=== PATIENT | female | born 2000 | race Caucasian/White ===

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

== ENCOUNTER → 2021-03-04 14:10 | Outpatient (BNVA) | payer MEDICAID, SELFPAY | PROVIDERS: PCP Nurse Practitioner; Referring Provider Nurse Practitioner; Visit Provider Surgery | DX: D3A.020 Benign carcinoid tumor of the appendix (principal) | CPT/HCPCS: 99202 ==

== ENCOUNTER 2021-03-26 13:43 | Outpatient (REF) | payer MEDICAID, SELFPAY ==
--- NOTE | ~2021-03-26 | CT_ITS ---
EXAMINATION: CT ABDOMEN AND PELVIS WITH CONTRAST CLINICAL INFORMATION: Staging carcinoid. COMPARISON: Previous CT of the abdomen and pelvis January 2021. TECHNIQUE: Multidetector volumetric images were obtained from the superior aspect of the liver through the pubic symphysis following administration 85 mL of Omnipaque 350 intravenous contrast. Sagittal and coronal reformatted images were obtained on the technologist's workstation. Oral Contrast: Yes. This CT examination was performed using dose optimization techniques as appropriate, variously including the following: *Automated exposure control. *Adjustment of mA and/or kV according to patient size (this includes techniques or standardized protocols for targeted exams where dose is matched to indication/reason for exam; i.e. extremities or head). *Use of iterative reconstruction technique. DLP: 417 mGy-cm FINDINGS: LUNG BASES: The visualized lung bases are unremarkable. LIVER, GALLBLADDER, AND BILIARY TREE: The liver is normal in size, shape, and attenuation. No focal hepatic lesion or biliary ductal dilatation is present. The gallbladder is unremarkable with no evidence of radiopaque gallstones, gallbladder wall thickening, or obvious pericholecystic inflammatory changes. PANCREAS: Unremarkable. SPLEEN: Unremarkable. ADRENAL GLANDS: Unremarkable. KIDNEYS AND URETERS: The kidneys are normal in size, shape, and attenuation. No hydronephrosis, hydroureter, or calculi seen. No perinephric stranding. BLADDER: Unremarkable. GASTROINTESTINAL TRACT: The small and large bowel are unremarkable. The appendix is has been removed. There is a small amount of fluid seen in the right lower quadrant. ABDOMINAL WALL: No significant hernia is appreciated. LYMPH NODES: There are small, small bowel mesentery lymph nodes. No enlarged lymph nodes are seen. Largest lymph node is at the root of the small bowel mesentery and measures 7 mm in short axis axial image follow up is recommended. VASCULAR: Unremarkable. PELVIC VISCERA: Unremarkable. OSSEOUS STRUCTURES: Unremarkable. CT/CT abdomen pelvis w con IMPRESSION: The appendix has been removed. There is a small amount of fluid in the right lower quadrant. There are small, small bowel mesentery nodes. Attention on follow-up is recommended. No enlarged lymph nodes, mesenteric mass or liver lesion to suggest metastatic disease. Fleischner guidelines were followed.
[2021-03-26] MEDS: iohexoL 350 MG/ML 100 ML INFUS..BTL IV (15:05)
== END 2021-03-26 13:44 | disposition home or self-care (01) ==
LOC: HO.CT 13:43
PROVIDERS: Visit Provider Internal Medicine
DX: C18.1 Malignant neoplasm of appendix (principal)
CPT/HCPCS: 74177; Q9967

== ENCOUNTER 2021-04-04 09:32 | Inpatient (IN) | payer MEDICAID, SELFPAY ==
[2021-03-25 12:03] VITALS: BMI 27.1
--- NOTE | 2021-04-03 09:49 | P.CONAN_ITS ---
Documented by User: Lissette Nascimento NP 04/03/21 09:53 HPI - Anesthesia Eval Consult details Narrative: 21yo F for Hand Assisted Laparoscopic Colon Resection with Possible Conversion to Open s/p appendectomy at [facility] 01/2021. 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, 1.3 cm PMFSH Active Problems Active Problems: All Active Problems (Updated 03/25/21 @ 10:00 by Viviana Bunch RN) Carcinoid tumor of appendix (Acute) Past Medical History Medical History Hx of appendicitis Hx of malignant carcinoid tumor Family History Family History Maternal Uncle Cancer Other Diabetes Surgical History Surgical History History of bladder surgery Hx of appendectomy Social History Social History Household Members Other:: roommates Are you a primary rehab care assistant to a significant other at home: No Do you presently have visiting nurse or other home services: No Alcohol intake: current Alcohol intake frequency: does not drink Patient Tobacco Use Status: Never used Tobacco Substance Use Type: Marijuana Meds Allergies Allergy/AdvReac Type Severity Reaction Status Date / Time No Known Allergies Allergy Verified 04/04/21 06:24 [No Known Allergies*] Home Medications Medication Instructions Recorded Confirmed Last Taken Type No Known Home Meds 03/25/21 03/25/21 Unknown History Exam Exam Date and Time: April 03, 2021 0949 Height,Weight and Vital Signs: Height 5 ft 6 in Weight 76.204 kg Pertinent Lab Results Pertinent Lab Results: Laboratory Tests 02/22/21 02/22/21 15:57 15:57 WBC 6.7 Hgb 13.4 Hct 41.7 Plt Count 341 Sodium 140 Potassium 4.8 Chloride 106 Carbon Dioxide 24 BUN 10 Creatinine 0.82 Assessment and Plan Assessment Anesthesia Assessment: Chart Reviewed Documented by User: Marisela Dobbs MD 04/04/21 07:20 PMFSH Past Medical History Medical History Hx of appendicitis Hx of malignant carcinoid tumor Functional capacity: independent ambulation Patient : No Family History Family History Maternal Uncle Cancer Other Diabetes Surgical History Surgical History History of bladder surgery Hx of appendectomy History of Problems with Anesthesia: No Social History Social History Household Members Other:: roommates Are you a primary rehab care assistant to a significant other at home: No Do you presently have visiting nurse or other home services: No Alcohol intake: current Alcohol intake frequency: does not drink Patient Tobacco Use Status: Never used Tobacco Substance Use Type: Marijuana Meds Allergies Allergy/AdvReac Type Severity Reaction Status Date / Time No Known Allergies Allergy Verified 04/04/21 06:24 [No Known Allergies*] Home Medications Medication Instructions Recorded Confirmed Last Taken Type No Known Home Meds 03/25/21 03/25/21 Unknown History Exam Airway Mallampati Class: II TM Dist: >3cm Neck ROM: Full Heart: RRR Lungs: CTA Assessment and Plan Final Anesthetic Review History of Problems with Anesthesia: No NPO: Yes ASA Class: II Final Preanesthetic Review: No Changes in Pt Med Stat, Meds/Allgs Chart Reviewed, Consent Obtained/Reviewed and Anes Risks/Benef Reviewed Patient Risk: Low Procedure Risk: Low Anesthetic Plan Anesthetic Plan: GA Disposition: Standard PACU
[2021-04-04] VITALS (22 sets, daily range): BP systolic 100–139; BP diastolic 60–91; PULSE 60–89; RESP 12–26; TEMP 36.2–37.2; O2SAT 95–100
[2021-04-04 06:41] LABS: UPreg QC Valid YES; Urine Pregnancy NEGATIVE (NEGATIVE)
[2021-04-04 06:53] LABS: COVID-19 Test Negative (Negative)
[2021-04-04] MEDS: Lactated Ringers 1,000 ML 100 ML IVCONT (06:53)
--- NOTE | 2021-04-04 07:25 | MHC.SHP ---
Pre-Procedural Eval Section A Date of Service: 04/04/21 The patient is an INPATIENT: Yes Changes since office visit: No Cold of Flu in the past 2 weeks, No New Medical Problems, No Changes in Medication and No Patient answered all questions The History & Physical has been completed within 30 days and I have reviewed it.: Yes Section B Chief Complaint: Carcinoid tumor of appendix Allergies: Allergies Allergy/AdvReac Type Severity Reaction Status Date / Time No Known Allergies Allergy Verified 04/04/21 06:24 [No Known Allergies*] Plan I have reviewed the history and physical and performed a pertinent physical examination on my patient. No changes have occurred unless specified.
--- NOTE | 2021-04-04 07:31 | PC.NURSE ---
pt made aware of chance of burn wth nipple and nose rings. taped per pt request
--- NOTE | 2021-04-04 07:35 | PM.EVENT ---
Event Note Date of Service: 04/04/21 Event Note: pt has piercings on her nose and both nipples explained to her the risk of skin valdez from this with use of electrocautery advised her that it is best to remove these she says she did not want to as the piercings are relatively new she says she understands the risks of skin valdez multiple discussions made with her discussions witnessed by OR staff
--- NOTE | 2021-04-04 09:12 | P.OP_ITS ---
Operative Note Operative Note Date of Service: 04/04/21 Narrative: Preop diagnosis: appendiceal carcinoid, status post appendectomy Postop diagnosis: The same Procedure: hand assisted laparoscopic right colon resection Surgeon: Jan Douglas MD 1st diversional therapist's assistant: MICHAEL Flores The patient is a 21-year-old female who had undergone laparoscopic appendectomy for appendicitis in [place] last January,. The path report however had shown a carcinoid at the tip of the appendix which was T3. She was therefore referred to me by the Oncologist for right colon resection as recommended by ENETS Guidelines. she understood the technique of the procedure as well as the risks, benefits, and alternatives. She was brought to the operating room placed supine on the table under general anesthesia via endotracheal tube. A Motley catheter was inserted. The abdomen is prepped and draped in the usual sterile fashion. A surgical time-out was done. The patient received Cefotan 2 g IV preoperatively I made a short incision at the level of the like us using blade 15 and this carried down through the full-thickness of the skin and subcutaneous fat with electrocautery. The fascia was incised and the peritoneum was entered. I lengthen the fascial incision to optimize the skin incision The Christian wound retractor was positioned. the GelPort was then attached to this along with an insufflating port. We insufflated through a pressure of 15 mmHg. The 30 degree 10 mm scope was placed through this insufflating port and with laparoscopic visualization, I position 5/12 mm port in the epigastric area below the subcostal margin as well as on the left upper Quadrant through small stab incisions. I removed the insufflating port. I placed the laparoscoped through the epigastric port. I positioned my hand through the GelPort and placed the patient in a [id number] head-down position. I retracted bowel loops away from the right lower quadrant . I was able to visualize the cecum and the right colon easily. I mobilized the lateral attachments along the white line of Toldt using the LigaSure starting from the cecum all the way to the panic flexure. I divided hepatocolic ligaments with the LigaSure to mobilize the hepatic flexure down. I divided attached omentum as well to further mobilize the entire recur small transverse colon. I continued to dissect the right colon from the retroperitoneum using the LigaSure to divide filmy attachments until was able to see the duodenum. This was the medial limit of our dissection so we stop mobilizing the retroperitoneum at this point I continued to divide attachments at the terminal ileum with the LigaSure until there was also well mobilized. At this point, it appeared that we had adequate mobilization of the entire right colon for anastomosis. I therefore level the patient I removed the GelPort and pulled up the entire right colon starting from the distal ileum all the way to the proximal transverse colon. I chose my point of transection about 12 cm from the ileocecal valve on the terminal ileum and created a mesenteric window through this. This was divided at this point using ERNESTO 60 mm stapler. I chose my point of dissection in the proximal transverse colon as well and created a mesenteric window. I divided the proximal transverse colon with ERNESTO 60 mm stapler as well. I marked my planned line of resection of the mesentery to involve I had ligation of the ileocolic pedicle and include adequate lymph node basin I then used the LigaSure to divide this mesentery along this line on the peritoneum from both the proximal distal side until I was able to clearly identify the ileocolic pedicle. I dissected the ileocolic pedicle to define this well. I applied Rhea is and divided the ileocolic pedicle between the Rhea clamps. I doubly tied the proximal side with a Dexon 2-0 type The right colon was therefore sent as a specimen We had good hemostasis on the mesentery as well as the pedicle I then positioned the divided ends of the distal ileum as well as the transverse colon to create our anastomosis. Open that the apex of each staple line to enter the lumen. I positioned each arm of the ERNESTO 60 mm stapler through the lumen at the anti mesenteric border of each limb. I made sure that there was no bowel between the staple lines and this was fired. I completed the anastomosis using a TA 60 mm stapler I closed the mesenteric defect with a running Dexon 3-0 stitch. I induration force the crotch of the staple line with a running Dexon 3-0 seromuscular stitch I examined for a stasis. Once hemostasis was ensured I replaced all bowel loops back into the peritoneal cavity I positioned the omentum to cover the anastomosis I then really replaced the GelPort and examined the peritoneum in laparoscopicaly. There was no evidence of any bleeding or any bowel injury . The anastomosis appeared intact . There was no evidence of any leak or any bowel injury or any bleeding. I therefore desufflated and removed the port as well as the wound retractor. I left 1 of the ports in place to it examine the peritoneum laparoscopically for later I closed the fascia with a running Maxon 1 stitch. I irrigated the subcutaneous layer. after the fascia was closed, I examined the peritoneum again laparoscopically after some infiltration. There was no bleeding seen and the closure of the fascia appeared intact without any bowel caught within the stitches. All incisions were closed with Jose 4-0 subcuticular running sutures. All incisions were infiltrated with Marcaine 0.5% for postop analgesia. Steri-Strip s and dressings were applied. The procedure was completed The patient tolerated procedure well. There were no complication noted. Initial fine counts of sponges and instruments were correct. Estimated blood loss about 30 cc The patient was extubated without difficulty and transferred to the recovery room with stable vital signs. Colon Resection Tumor location: Right colon Extent of lymphovascular resection Right colon (cecum and ascending colon): Right colon along with the terminal ileum, cecum and ascending colon General Surg. - Synoptic Notes Colon Resection Tumor location: Right colon Extent of Lymphovascular Resection: Right colon (cecum and ascending colon): Right colon along with the terminal ileum, cecum and ascending colon
--- NOTE | 2021-04-04 09:31 | P.BOP_ITS ---
Brief Operative Note Date of Service: 04/04/21 Pre-op diagnosis: carcinoid tumor of appendix Post-op diagnosis: same Procedure: hand assisted laparoscopic right colon resection Surgeon: SEBASTIEN CUMMINGS MD Anesthesia: GETA Was an Offset Plate Maker used for this Procedure?: Yes Offset Plate Maker: Margaret Flores Estimated blood loss (mL): 20 Pathology: other (right colon) Condition: stable Disposition: PACU
[2021-04-04] MEDS: fentaNYL citrate/PF 100 MCG/2 ML VIAL 25 MCG IVPUSH ×4 (09:45→10:00)
[2021-04-04] MEDS: oxyCODONE HCl Immed Release 5 MG TABLET PO (10:43)
[2021-04-04] MEDS: HYDROmorphone HCl 1 MG/ML SYRINGE 0.5 MG IVPUSH ×4 (10:53→17:55)
[2021-04-04] MEDS: Lactated Ringers 1,000 ML 80 ML IVCONT ×2 (11:27→21:31)
--- NOTE | 2021-04-04 15:27 | PM.EVENT ---
Event Note Date of Service: 04/04/21 Event Note: Seen postop She underwent right colon resection earlier today Seems to have good pain control Good urine output Stable vital signs Dressings dry She is doing well postoperatively I have updated her mother by phone Continue pain management
[2021-04-04] MEDS: Morphine Sulfate 2 MG/ML CARTRIDGE IVPUSH (20:51)
[2021-04-05] VITALS (8 sets, daily range): BP systolic 109–129; BP diastolic 59–76; PULSE 69–86; RESP 17–18; TEMP 36.6–37.6; O2SAT 97–98; BMI 27.1
[2021-04-05] MEDS: HYDROmorphone HCl 1 MG/ML SYRINGE 0.5 MG IVPUSH (01:46)
[2021-04-05] MEDS: 0.9 % Sodium Chloride Flush 3 ML SYRINGE IVFLUSH (01:47)
[2021-04-05] MEDS: ondansetron HCL 4 MG/2 ML VIAL IVPUSH ×2 (02:07→23:34)
[2021-04-05 05:42] LABS: MANUAL DIFF FLAG NO
[2021-04-05 05:49] LABS: Basophils Percent Auto 0.2 % (0-2); Eosinophils Percent Auto 0.1 % (0-4); Hematocrit 34.7 % (37.0-47.0); Hemoglobin 11.4 g/dl (12.0-16.0); Imm Gran Abs Auto 0.05 X10*3/uL (0.00-0.03); Imm Gran Pct Auto 0.4 % (0.0-0.4); Lymphocytes Absolute Auto 1.9 X10*3/uL (1.2-4.9); Lymphocytes Percent Auto 14.4 % (20-40); Mean Corpuscular HGB Conc 32.9 g/dl (31.0-35.0); Mean Corpuscular Hemoglobin 27.9 pg (27.0-33.0); Mean Corpuscular Volume 84.8 fL (80.0-98.0); Mean Platelet Volume 11.4 fL (9.4-12.3); Monocytes Absolute Auto 1.1 X10*3/uL (0.1-1.2); Monocytes Percent Auto 8.3 % (2-11); Neutrophils Absolute Auto 10.1 x10*3/uL (2.0-8.3); Neutrophils Percent Auto 76.6 % (45-73); Platelet Count 281 X10*3/uL (160-400); Red Blood Count 4.09 X10*6/uL (4.20-5.50); Red Cell Distribution Width 13.6 % (11.0-16.0); White Blood Count 13.2 X10*3/uL (4.8-10.8)
[2021-04-05 06:07] LABS: Anion Gap 14 (12-20); Blood Urea Nitrogen 9 mg/dL (9-16); Carbon Dioxide 23 mmol/L (22-29); Chloride 105 mmol/L (96-108); Creatinine Clr Calc Pharmacy 123.1; Estimated Glomerular Filt Rate > 60; Glucose Random 96 mg/dL (60-115); Potassium 4.7 mmol/L (3.3-5.1); Sodium 137 mmol/L (135-145)
[2021-04-05] MEDS: oxyCODONE HCl Immed Release 5 MG TABLET 10 MG PO ×2 (07:33→22:48)
--- NOTE | 2021-04-05 08:16 | PM.PNGS ---
Subjective Subjective Date of Service: 04/05/21 <Margaret Flores PA-C - Last Filed: 04/05/21 08:20> 04/05/21 <Jan Douglas MD - Last Filed: 04/05/21 15:56> Interval history: Very sore this morning at incision site. Also c/o some nausea. Denies flatus. Has not been OOB. <Margaret Flores PA-C - Last Filed: 04/05/21 08:20> Physical Exam Vital Signs: Vital Signs: Last Vital Signs Temp 97.9 F 04/05/21 08:00 Pulse 69 04/05/21 08:00 Resp 18 04/05/21 08:00 BP 109/68 04/05/21 08:00 Pulse Ox 98 04/05/21 08:00 BMI result Body Mass Index 27.1 <BILL Yarbrough Last Filed: 04/05/21 08:20> Const: General: no acute distress and alert <Margaret Flores PA-C - Last Filed: 04/05/21 08:20> Orientation/consciousness: patient oriented x3 <Margaret Flores PA-C - Last Filed: 04/05/21 08:20> Resp: Effort & Inspection: normal respiratory effort <BILL Yarbrough Last Filed: 04/05/21 08:20> Cardio: Rate: regular rate <Margaret Flores PA-C - Last Filed: 04/05/21 08:20> GI: Inspection: No distended and Yes incision (dressings intact) <Margaret Flores PA-C - Last Filed: 04/05/21 08:20> Palpation (GI): Soft to palpation, Tenderness to palpation present (GI) (incisional), no guarding and not rigid <BILL Yarbrough Last Filed: 04/05/21 08:20> Percussion: Yes normal to percussion <BILL Yarbrough Last Filed: 04/05/21 08:20> : Other: anaya in place <BILL Yarbrough Last Filed: 04/05/21 08:20> Skin: General skin exam: no rashes or lesions noted <Margaret Flores PA-C - Last Filed: 04/05/21 08:20> Neuro: General: patient oriented x3 <Margaret Flores PA-C - Last Filed: 04/05/21 08:20> Extrem: General: Yes no clubbing, cyanosis or edema <Margaret Flores PA-C - Last Filed: 04/05/21 08:20> Objective Data Active Medications Diphenhydramine HCl (Diphenhydramine Hcl 50 Mg/Ml Vial) 25 mg IVPUSH Q6H PRN PRN Reason: Itching Hydromorphone HCl (Hydromorphone Hcl 1 Mg/Ml Syringe) 0.5 mg IVPUSH Q10M PRN; Protocol PRN Reason: Pain, Severe (Pain Scale 7-10) Last Admin: 04/05/21 01:46 Dose: 0.5 mg Documented by: JANE Acetaminophen (Ofirmev) 1,000 mg in 100 mls @ 400 mls/hr IV Q6H PRN PRN Reason: Pain, Severe (Pain Scale 7-10) Last Infusion: 04/04/21 20:25 Dose: 0 mls/hr Documented by: JOHN Lactated Ringer's (Lr) 1,000 mls @ 80 mls/hr IVCONT .[id number] [id number] Last Admin: 04/04/21 21:31 Dose: 80 mls/hr Documented by: JOHN Morphine Sulfate (Morphine Sulfate 2 Mg/Ml Cartridge) 2 mg IVPUSH Q3H PRN; Protocol PRN Reason: Pain, Severe (Pain Scale 7-10) Last Admin: 04/04/21 20:51 Dose: 2 mg Documented by: JOHN Ondansetron HCl (Ondansetron Hcl 4 Mg/2 Ml Vial) 4 mg IVPUSH Q8H PRN PRN Reason: Nausea and Vomiting Last Admin: 04/05/21 02:07 Dose: 4 mg Documented by: JANE Oxycodone HCl (Oxycodone Hcl Immed Release 5 Mg Tablet) 5 mg PO Q4H PRN PRN Reason: Pain, Moderate (Pain Scale 4-6 Oxycodone HCl (Oxycodone Hcl Immed Release 5 Mg Tablet) 10 mg PO Q4H PRN PRN Reason: Pain, Severe (Pain Scale 7-10) Last Admin: 04/05/21 07:33 Dose: 10 mg Documented by: ZANE Sodium Chloride (0.9 % Sodium Chloride Flush 3 Ml Syringe) 3 ml IVFLUSH QSHIFT [place] Last Admin: 04/05/21 07:34 Dose: Not Given Documented by: ZANE Non-Admin Reason: IV Running <Margaret Flores PA-C - Last Filed: 04/05/21 08:20> Labs CBC & Chem 7: : 04/05/21 05:20 04/05/21 05:20 <Margaret Flores PA-C - Last Filed: 04/05/21 08:20> Labs: Laboratory Results - last 24 hr 04/04/21 04/05/21 04/05/21 06:24 05:20 05:20 MCV 84.8 MCH 27.9 MCHC 32.9 RDW 13.6 Plt Count 281 MPV 11.4 Immature Gran % (Auto) 0.4 Neut % (Auto) 76.6 H Lymph % (Auto) 14.4 L [place] % (Auto) 8.3 Eos % (Auto) 0.1 Baso % (Auto) 0.2 Lymph # (Auto) 1.9 [place] # (Auto) 1.1 Eos # (Auto) 0.0 Baso # (Auto) 0.0 Abs Immat Gran (auto) 0.05 H Absolute Neuts (auto) 10.1 H Absolute Nucleated RBC 0.000 Nucleated RBC % (auto) 0.0 Anion Gap 14 Estim Creat Clear Calc 123.1 Estimated GFR > 60 Random Glucose 96 Calcium 9.0 D Blood Type O Positive Antibody Screen NEGATIVE <Margaret Flores PA-C - Last Filed: 04/05/21 08:20> Procedures Date of Service Date of Service: 04/05/21 <Margaret Flores PA-C - Last Filed: 04/05/21 08:20> Progress Note: A&P Assessment and plan (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 Doing well post op. C/o incisional pain. VSS. Abd exam with appropriate post op tenderness, dressings intact. AM labs reviewed. D/c anaya. Will continue clear liquids given nausea. Encouraged OOB/ambulation and IS use today. Pain control. Await return of GI function. Await pathology. <Margaret Flores PA-C - Last Filed: 04/05/21 08:20> Fall Risk Details Current Medications: Current Medications Diphenhydramine HCl (Diphenhydramine Hcl 50 Mg/Ml Vial) 25 mg IVPUSH Q6H PRN PRN Reason: Itching Hydromorphone HCl (Hydromorphone Hcl 1 Mg/Ml Syringe) 0.5 mg IVPUSH Q10M PRN; Protocol PRN Reason: Pain, Severe (Pain Scale 7-10) Last Admin: 04/05/21 01:46 Dose: 0.5 mg Documented by: Acetaminophen (Ofirmev) 1,000 mg in 100 mls @ 400 mls/hr IV Q6H PRN PRN Reason: Pain, Severe (Pain Scale 7-10) Last Infusion: 04/04/21 20:25 Dose: Infused Documented by: Lactated Ringer's (Lr) 1,000 mls @ 80 mls/hr IVCONT .[id number] [place] Last Admin: 04/04/21 21:31 Dose: 80 mls/hr Documented by: Morphine Sulfate (Morphine Sulfate 2 Mg/Ml Cartridge) 2 mg IVPUSH Q3H PRN; Protocol PRN Reason: Pain, Severe (Pain Scale 7-10) Last Admin: 04/04/21 20:51 Dose: 2 mg Documented by: Ondansetron HCl (Ondansetron Hcl 4 Mg/2 Ml Vial) 4 mg IVPUSH Q8H PRN PRN Reason: Nausea and Vomiting Last Admin: 04/05/21 02:07 Dose: 4 mg Documented by: Oxycodone HCl (Oxycodone Hcl Immed Release 5 Mg Tablet) 5 mg PO Q4H PRN PRN Reason: Pain, Moderate (Pain Scale 4-6 Oxycodone HCl (Oxycodone Hcl Immed Release 5 Mg Tablet) 10 mg PO Q4H PRN PRN Reason: Pain, Severe (Pain Scale 7-10) Last Admin: 04/05/21 07:33 Dose: 10 mg Documented by: Sodium Chloride (0.9 % Sodium Chloride Flush 3 Ml Syringe) [facility] Last Admin: 04/05/21 07:34 Dose: Not Given Documented by: <Margaret Flores PA-C - Last Filed: 04/05/21 08:20> Time Spent With Patient Time: Total time spent is greater than 50% in coordination of care (as documented) at patient's floor/unit and/or counseling patient: <Margraet Flores PA-C - Last Filed: 04/05/21 08:20> Time with patient: 15 - 24 minutes <Margaret Flores PA-C - Last Filed: 04/05/21 08:20> Quality Stroke Does the patient have a stroke diagnosis?: No <Margaret Flores PA-C - Last Filed: 04/05/21 08:20> VTE Prior VTE?: No <Margaret Flores PA-C - Last Filed: 04/05/21 08:20> VTE Risk Level:: Surgical - low <BILL Yarbrough Last Filed: 04/05/21 08:20> VTE Device Contraindication: N/A - Device Ordered <Margaret Flores PA-C - Last Filed: 04/05/21 08:20> VTE Drug Contraindication: Treatment Not Indicated <BILL Yarbrough Last Filed: 04/05/21 08:20>
[2021-04-05] MEDS: Lactated Ringers 1,000 ML 80 ML IVCONT ×2 (08:51→20:06)
[2021-04-05] MEDS: Morphine Sulfate 2 MG/ML CARTRIDGE IVPUSH ×3 (08:53→16:11)
--- NOTE | 2021-04-05 13:22 | MHC.CM.PN ---
met with pt dc plan home no services pt lives alone and will have transport home
[2021-04-06] VITALS (7 sets, daily range): BP systolic 101–117; BP diastolic 54–71; PULSE 70–83; RESP 16–19; TEMP 36.6–37.1; O2SAT 98
[2021-04-06] MEDS: Lactated Ringers 1,000 ML 80 ML IVCONT ×2 (08:37→19:49)
[2021-04-06] MEDS: Morphine Sulfate 2 MG/ML CARTRIDGE IVPUSH ×2 (12:30→16:53)
--- NOTE | 2021-04-06 13:32 | PM.PNGS ---
Subjective Subjective Date of Service: 04/06/21 Interval history: pt complaining of nausea and gas sensation in her chest area. she says no flatus but feels lots of activity in her abdomen having some pain urinating well Physical Exam Vital Signs: Vital Signs: Last Vital Signs Temp 98.0 F 04/06/21 11:52 Pulse 75 04/06/21 11:52 Resp 19 04/06/21 11:52 BP 115/67 04/06/21 11:52 Pulse Ox 98 04/06/21 11:52 BMI result Body Mass Index 27.1 Const: General: cooperative, comfortable, no acute distress, alert, awake and Physically active Orientation/consciousness: oriented to person, oriented to place and oriented to time Resp: Effort & Inspection: normal respiratory effort and able to speak in complete sentences Auscultation: clear to auscultation bilaterally Cardio: Rate: regular rate Rhythm: regular rhythm GI: Other: abdomen is soft mild tenderness mild distension some active bowel sounds but still quiet incisions all look very good. Inspection: Yes normal to inspection Neuro: General: oriented to person, oriented to place and oriented to time Objective Data Active Medications Diphenhydramine HCl (Diphenhydramine Hcl 50 Mg/Ml Vial) 25 mg IVPUSH Q6H PRN PRN Reason: Itching Hydromorphone HCl (Hydromorphone Hcl 1 Mg/Ml Syringe) 0.5 mg IVPUSH Q10M PRN; Protocol PRN Reason: Pain, Severe (Pain Scale 7-10) Last Admin: 04/05/21 01:46 Dose: 0.5 mg Documented by: JANE Acetaminophen ([facility]) 1,000 mg in 100 mls @ 400 mls/hr IV Q6H PRN PRN Reason: Pain, Severe (Pain Scale 7-10) Last Infusion: 04/06/21 11:26 Dose: 0 mls/hr Documented by: CORAL Lactated Ringer's (Lr) 1,000 mls @ 80 mls/hr IVCONT .[id number] [place] Last Admin: 04/06/21 08:37 Dose: 80 mls/hr Documented by: CORAL Morphine Sulfate (Morphine Sulfate 2 Mg/Ml Cartridge) 2 mg IVPUSH Q3H PRN; Protocol PRN Reason: Pain, Severe (Pain Scale 7-10) Last Admin: 04/06/21 12:30 Dose: 2 mg Documented by: CORAL Ondansetron HCl (Ondansetron Hcl 4 Mg/2 Ml Vial) 4 mg IVPUSH Q8H PRN PRN Reason: Nausea and Vomiting Last Admin: 04/05/21 23:34 Dose: 4 mg Documented by: CHAYITO Oxycodone HCl (Oxycodone Hcl Immed Release 5 Mg Tablet) 5 mg PO Q4H PRN PRN Reason: Pain, Moderate (Pain Scale 4-6 Oxycodone HCl (Oxycodone Hcl Immed Release 5 Mg Tablet) 10 mg PO Q4H PRN PRN Reason: Pain, Severe (Pain Scale 7-10) Last Admin: 04/05/21 22:48 Dose: 10 mg Documented by: CHAYITO Sodium Chloride (0.9 % Sodium Chloride Flush 3 Ml Syringe) 3 ml IVFLUSH [facility] Last Admin: 04/06/21 08:37 Dose: Not Given Documented by: CORAL Non-Admin Reason: IV Running Labs CBC & Chem 7: 04/05/21 05:20 04/05/21 05:20 Procedures Date of Service Date of Service: 04/06/21 Progress Note: A&P Assessment and plan (1) S/P right colectomy: Status: Acute Assessment and Plan: 21 layla old female sp right colecotmy for carcinoid of the appendix doing well - ileus continues but doing ok neuro - iv and po pain meds, try to get away from narcotics as much resp - no issues gi - ileus - cont wth sips of liquids and ambulate fen- cont with ivf until po intake of liquids is good check electrolytes tomorrow ambulate she understands and agrees with plan Fall Risk Details Was a [facility] Med Consult for Fall Risk requested: no Current Medications: Current Medications Diphenhydramine HCl (Diphenhydramine Hcl 50 Mg/Ml Vial) 25 mg IVPUSH Q6H PRN PRN Reason: Itching Hydromorphone HCl (Hydromorphone Hcl 1 Mg/Ml Syringe) 0.5 mg IVPUSH Q10M PRN; Protocol PRN Reason: Pain, Severe (Pain Scale 7-10) Last Admin: 04/05/21 01:46 Dose: 0.5 mg Documented by: Acetaminophen (Ofirmev) 1,000 mg in 100 mls @ 400 mls/hr IV Q6H PRN PRN Reason: Pain, Severe (Pain Scale 7-10) Last Infusion: 04/06/21 11:26 Dose: Infused Documented by: Lactated Ringer's (Lr) 1,000 mls @ 80 mls/hr IVCONT .[id number] [facility] Last Admin: 04/06/21 08:37 Dose: 80 mls/hr Documented by: Morphine Sulfate (Morphine Sulfate 2 Mg/Ml Cartridge) 2 mg IVPUSH Q3H PRN; Protocol PRN Reason: Pain, Severe (Pain Scale 7-10) Last Admin: 04/06/21 12:30 Dose: 2 mg Documented by: Ondansetron HCl (Ondansetron Hcl 4 Mg/2 Ml Vial) 4 mg IVPUSH Q8H PRN PRN Reason: Nausea and Vomiting Last Admin: 04/05/21 23:34 Dose: 4 mg Documented by: Oxycodone HCl (Oxycodone Hcl Immed Release 5 Mg Tablet) 5 mg PO Q4H PRN PRN Reason: Pain, Moderate (Pain Scale 4-6 Oxycodone HCl (Oxycodone Hcl Immed Release 5 Mg Tablet) 10 mg PO Q4H PRN PRN Reason: Pain, Severe (Pain Scale 7-10) Last Admin: 04/05/21 22:48 Dose: 10 mg Documented by: Sodium Chloride (0.9 % Sodium Chloride Flush 3 Ml Syringe) 3 ml IVFLUSH [facility] Last Admin: 04/06/21 08:37 Dose: Not Given Documented by: Time Spent With Patient Time: Total time spent is greater than 50% in coordination of care (as documented) at patient's floor/unit and/or counseling patient: Time with patient: 15 - 24 minutes Quality Stroke Does the patient have a stroke diagnosis?: No VTE Prior VTE?: No VTE Risk Level:: Surgical - low VTE Device Contraindication: N/A - Device Ordered VTE Drug Contraindication: Treatment Not Indicated
[2021-04-06] MEDS: Docusate Sodium 100 MG CAPSULE PO ×2 (13:58→20:20)
[2021-04-06] MEDS: ondansetron HCL 4 MG/2 ML VIAL IVPUSH (13:58)
[2021-04-06] MEDS: oxyCODONE HCl Immed Release 5 MG TABLET 10 MG PO (22:24)
[2021-04-07] VITALS (7 sets, daily range): BP systolic 94–122; BP diastolic 58–75; PULSE 71–80; RESP 17–19; TEMP 36–37.5; O2SAT 95–99
[2021-04-07] MEDS: Morphine Sulfate 2 MG/ML CARTRIDGE IVPUSH ×2 (06:17→12:25)
[2021-04-07] MEDS: Docusate Sodium 100 MG CAPSULE PO ×2 (09:58→19:41)
[2021-04-07 10:26] LABS: MANUAL DIFF FLAG NO
[2021-04-07 10:31] LABS: Basophils Percent Auto 0.4 % (0-2); Eosinophils Absolute Auto 0.2 X10*3/uL (0.0-0.4); Hematocrit 34.9 % (37.0-47.0); Hemoglobin 11.3 g/dl (12.0-16.0); Imm Gran Abs Auto 0.04 X10*3/uL (0.00-0.03); Imm Gran Pct Auto 0.5 % (0.0-0.4); Lymphocytes Absolute Auto 1.4 X10*3/uL (1.2-4.9); Lymphocytes Percent Auto 16.4 % (20-40); Mean Corpuscular HGB Conc 32.4 g/dl (31.0-35.0); Mean Corpuscular Hemoglobin 28.4 pg (27.0-33.0); Mean Corpuscular Volume 87.7 fL (80.0-98.0); Mean Platelet Volume 11.3 fL (9.4-12.3); Monocytes Absolute Auto 0.7 X10*3/uL (0.1-1.2); Monocytes Percent Auto 8.7 % (2-11); Platelet Count 245 X10*3/uL (160-400); Red Blood Count 3.98 X10*6/uL (4.20-5.50); Red Cell Distribution Width 13.2 % (11.0-16.0); White Blood Count 8.4 X10*3/uL (4.8-10.8)
[2021-04-07 10:44] LABS: Anion Gap 11 (12-20); Blood Urea Nitrogen 9 mg/dL (9-16); Calcium 9.2 mg/dL (8.4-10.2); Carbon Dioxide 26 mmol/L (22-29); Chloride 104 mmol/L (96-108); Creatinine Clr Calc Pharmacy 133.6; Estimated Glomerular Filt Rate > 60; Glucose Random 78 mg/dL (60-115); Potassium 4.1 mmol/L (3.3-5.1); Sodium 137 mmol/L (135-145)
--- NOTE | 2021-04-07 14:12 | PM.PNGS ---
Subjective Subjective Date of Service: 04/07/21 Interval history: pt is complaining not passing gas, not able to drink much feels bloated has gas discomfort but cant get rosa maria gas out. she has been walking a lot, not burping, pain meds only working a bit. Physical Exam Vital Signs: Vital Signs: Last Vital Signs Temp 99.5 F 04/07/21 12:00 Pulse 77 04/07/21 12:00 Resp 18 04/07/21 12:00 BP 114/63 04/07/21 12:00 Pulse Ox 97 04/07/21 12:00 BMI result Body Mass Index 27.1 Resp: Auscultation: clear to auscultation bilaterally Cardio: Rate: regular rate Rhythm: regular rhythm GI: Other: soft but distended, strong active bowel sounds, mild diffuse tenderness but no guarding or peritoneal signs Objective Data Active Medications Diphenhydramine HCl (Diphenhydramine Hcl 50 Mg/Ml Vial) 25 mg IVPUSH Q6H PRN PRN Reason: Itching Docusate Sodium (Docusate Sodium 100 Mg Capsule) 100 mg PO BID [facility] Last Admin: 04/07/21 09:58 Dose: 100 mg Documented by: CORAL Hydromorphone HCl (Hydromorphone Hcl 1 Mg/Ml Syringe) 0.5 mg IVPUSH Q10M PRN; Protocol PRN Reason: Pain, Severe (Pain Scale 7-10) Last Admin: 04/05/21 01:46 Dose: 0.5 mg Documented by: JANE Ketorolac Tromethamine (Ketorolac Tromethamine 30 Mg/Ml Vial) 15 mg IVPUSH Q6H [place] Stop: 04/09/21 00:00 Metoclopramide HCl (Metoclopramide Hcl 10 Mg/2 Ml Vial) 10 mg IVPUSH Q6H [place] Stop: 04/09/21 00:00 Morphine Sulfate (Morphine Sulfate 2 Mg/Ml Cartridge) 2 mg IVPUSH Q3H PRN; Protocol PRN Reason: Pain, Severe (Pain Scale 7-10) Last Admin: 04/07/21 12:25 Dose: 2 mg Documented by: CORAL Ondansetron HCl (Ondansetron Hcl 4 Mg/2 Ml Vial) 4 mg IVPUSH Q8H PRN PRN Reason: Nausea and Vomiting Last Admin: 04/06/21 13:58 Dose: 4 mg Documented by: CORAL Oxycodone HCl (Oxycodone Hcl Immed Release 5 Mg Tablet) 5 mg PO Q4H PRN PRN Reason: Pain, Moderate (Pain Scale 4-6 Oxycodone HCl (Oxycodone Hcl Immed Release 5 Mg Tablet) 10 mg PO Q4H PRN PRN Reason: Pain, Severe (Pain Scale 7-10) Last Admin: 04/06/21 22:24 Dose: 10 mg Documented by: CHAYITO Sodium Chloride (0.9 % Sodium Chloride Flush 3 Ml Syringe) 3 ml IVFLUSH [facility] Last Admin: 04/07/21 09:59 Dose: Not Given Documented by: CORAL Non-Admin Reason: IV Running Labs CBC & Chem 7: 04/07/21 10:05 04/07/21 10:05 Labs: Laboratory Results - last 24 hr 04/07/21 04/07/21 10:05 10:05 MCV 87.7 MCH 28.4 MCHC 32.4 RDW 13.2 Plt Count 245 MPV 11.3 Immature Gran % (Auto) 0.5 H Neut % (Auto) 72.0 Lymph % (Auto) 16.4 L [place] % (Auto) 8.7 Eos % (Auto) 2.0 Baso % (Auto) 0.4 Lymph # (Auto) 1.4 [place] # (Auto) 0.7 Eos # (Auto) 0.2 Baso # (Auto) 0.0 Abs Immat Gran (auto) 0.04 H Absolute Neuts (auto) 6.0 Absolute Nucleated RBC 0.000 Nucleated RBC % (auto) 0.0 Anion Gap 11 L Estim Creat Clear Calc 133.6 Estimated GFR > 60 Random Glucose 78 Calcium 9.2 Procedures Date of Service Date of Service: 04/07/21 Progress Note: A&P Assessment and plan (1) S/P right colectomy: Status: Acute Assessment and Plan: 21 yo female s/p right colectomy for carcinoid of the appendix. doing well and ileus is resolving. i think she feels discomfort from abdo cramping and gas trying to pas through. good bowel sounds and labs good cont npo with sips ivf ambulate will try reglan q6 for 24 hrs try toradol non narcotic for 24 hrs iv morphine as little as possible and po oxycodone slow too she understands and agrees with plan i think she will start to pass gas soon and she will feel much better at that point. Fall Risk Details Was a [facility] Consult for Fall Risk requested: no Current Medications: Current Medications Diphenhydramine HCl (Diphenhydramine Hcl 50 Mg/Ml Vial) 25 mg IVPUSH Q6H PRN PRN Reason: Itching Docusate Sodium (Docusate Sodium 100 Mg Capsule) 100 mg PO BID [facility] Last Admin: 04/07/21 09:58 Dose: 100 mg Documented by: Hydromorphone HCl (Hydromorphone Hcl 1 Mg/Ml Syringe) 0.5 mg IVPUSH Q10M PRN; Protocol PRN Reason: Pain, Severe (Pain Scale 7-10) Last Admin: 04/05/21 01:46 Dose: 0.5 mg Documented by: Ketorolac Tromethamine (Ketorolac Tromethamine 30 Mg/Ml Vial) 15 mg IVPUSH Q6H [facility] Stop: 04/09/21 00:00 Metoclopramide HCl (Metoclopramide Hcl 10 Mg/2 Ml Vial) 10 mg IVPUSH Q6H [facility] Stop: 04/09/21 00:00 Morphine Sulfate (Morphine Sulfate 2 Mg/Ml Cartridge) 2 mg IVPUSH Q3H PRN; Protocol PRN Reason: Pain, Severe (Pain Scale 7-10) Last Admin: 04/07/21 12:25 Dose: 2 mg Documented by: Ondansetron HCl (Ondansetron Hcl 4 Mg/2 Ml Vial) 4 mg IVPUSH Q8H PRN PRN Reason: Nausea and Vomiting Last Admin: 04/06/21 13:58 Dose: 4 mg Documented by: Oxycodone HCl (Oxycodone Hcl Immed Release 5 Mg Tablet) 5 mg PO Q4H PRN PRN Reason: Pain, Moderate (Pain Scale 4-6 Oxycodone HCl (Oxycodone Hcl Immed Release 5 Mg Tablet) 10 mg PO Q4H PRN PRN Reason: Pain, Severe (Pain Scale 7-10) Last Admin: 04/06/21 22:24 Dose: 10 mg Documented by: Sodium Chloride (0.9 % Sodium Chloride Flush 3 Ml Syringe) 3 ml IVFLUSH QSHIFT [facility] Last Admin: 04/07/21 09:59 Dose: Not Given Documented by: Time Spent With Patient Time: Total time spent is greater than 50% in coordination of care (as documented) at patient's floor/unit and/or counseling patient: Time with patient: 25 - 35 minutes Quality Stroke Does the patient have a stroke diagnosis?: No VTE Prior VTE?: No VTE Risk Level:: Surgical - low VTE Device Contraindication: N/A - Device Ordered VTE Drug Contraindication: Treatment Not Indicated
[2021-04-07] MEDS: Ketorolac Tromethamine 30 MG/ML VIAL 15 MG IVPUSH ×2 (14:50→19:40)
[2021-04-07] MEDS: Metoclopramide HCl 10 MG/2 ML VIAL IVPUSH ×2 (14:51→19:40)
[2021-04-07] MEDS: 0.9 % Sodium Chloride Flush 3 ML SYRINGE IVFLUSH (17:29)
[2021-04-08] VITALS: BP 119/68; PULSE 86; RESP 18; TEMP 36.9; O2SAT 97
[2021-04-08] MEDS: Morphine Sulfate 2 MG/ML CARTRIDGE IVPUSH (00:40)
[2021-04-08] MEDS: 0.9 % Sodium Chloride Flush 3 ML SYRINGE IVFLUSH ×2 (00:43→06:57)
[2021-04-08] MEDS: ondansetron HCL 4 MG/2 ML VIAL IVPUSH (00:45)
[2021-04-08] MEDS: Ketorolac Tromethamine 30 MG/ML VIAL 15 MG IVPUSH ×2 (02:03→06:57)
[2021-04-08] MEDS: Metoclopramide HCl 10 MG/2 ML VIAL IVPUSH ×2 (02:05→06:57)
[2021-04-08 03:38] VITALS: BP 98/55; PULSE 62; RESP 18; TEMP 36; O2SAT 97
[2021-04-08] MEDS: oxyCODONE HCl Immed Release 5 MG TABLET 10 MG PO ×2 (06:56→11:03)
[2021-04-08 08:00] VITALS: BP 114/60; PULSE 74; RESP 20; TEMP 36.8
--- NOTE | 2021-04-08 09:39 | P.PNGS_ITS ---
Subjective Subjective Date of Service: 04/11/21 Interval history: Says she feels well this morning Has been passing flatus Had a good bowel movement earlier Says she wants to go home Physical Exam Verdana 4l Vital Signs: Verdana 4d Verdana 4d Vital Signs: Verdana 4d Verdana 4Bd Last Vital Signs Verdana 4d Content Designer New 4d Content Designer New 4d Temp 98.3 F 04/08/21 08:00 Content Designer New 4d Pulse 74 04/08/21 08:00 Content Designer New 4d Resp 20 04/08/21 08:00 BP 114/60 04/08/21 08:00 Pulse Ox 97 04/08/21 03:38 BMI result Body Mass Index 27.1 Const: General: comfortable and no acute distress Resp: Effort & Inspection: normal respiratory effort Cardio: Rhythm: regular rhythm GI: Other: Incisions clean and dry Palpation (GI): Soft to palpation, not firm and no guarding Objective Data Active Medications Diphenhydramine HCl (Diphenhydramine Hcl 50 Mg/Ml Vial) 25 mg IVPUSH Q6H PRN PRN Reason: Itching Docusate Sodium (Docusate Sodium 100 Mg Capsule) 100 mg PO BID [facility] Last Admin: 04/07/21 19:41 Dose: 100 mg Documented by: CORAL Hydromorphone HCl (Hydromorphone Hcl 1 Mg/Ml Syringe) 0.5 mg IVPUSH Q10M PRN; Protocol PRN Reason: Pain, Severe (Pain Scale 7-10) Last Admin: 04/05/21 01:46 Dose: 0.5 mg Documented by: JANE Ketorolac Tromethamine (Ketorolac Tromethamine 30 Mg/Ml Vial) 15 mg IVPUSH Q6H [facility] Stop: 04/09/21 00:00 Last Admin: 04/08/21 06:57 Dose: 15 mg Documented by: ZANE Metoclopramide HCl (Metoclopramide Hcl 10 Mg/2 Ml Vial) 10 mg IVPUSH Q6H [facility] Stop: 04/09/21 00:00 Last Admin: 04/08/21 06:57 Dose: 10 mg Documented by: ZANE Morphine Sulfate (Morphine Sulfate 2 Mg/Ml Cartridge) 2 mg IVPUSH Q3H PRN; Protocol PRN Reason: Pain, Severe (Pain Scale 7-10) Last Admin: 04/08/21 00:40 Dose: 2 mg Documented by: MAKI Ondansetron HCl (Ondansetron Hcl 4 Mg/2 Ml Vial) 4 mg IVPUSH Q8H PRN PRN Reason: Nausea and Vomiting Last Admin: 04/08/21 00:45 Dose: 4 mg Documented by: MAKI Oxycodone HCl (Oxycodone Hcl Immed Release 5 Mg Tablet) 5 mg PO Q4H PRN PRN Reason: Pain, Moderate (Pain Scale 4-6 Oxycodone HCl (Oxycodone Hcl Immed Release 5 Mg Tablet) 10 mg PO Q4H PRN PRN Reason: Pain, Severe (Pain Scale 7-10) Last Admin: 04/08/21 06:56 Dose: 10 mg Documented by: ZANE Sodium Chloride (0.9 % Sodium Chloride Flush 3 Ml Syringe) 3 ml IVFLUSH [facility] Last Admin: 04/08/21 06:57 Dose: 3 ml Documented by: ZANE Labs CBC & Chem 7: 04/07/21 10:05 04/07/21 10:05 Labs: Laboratory Results - last 24 hr 04/07/21 04/07/21 10:05 10:05 MCV 87.7 MCH 28.4 MCHC 32.4 RDW 13.2 Plt Count 245 MPV 11.3 Immature Gran % (Auto) 0.5 H Neut % (Auto) 72.0 Lymph % (Auto) 16.4 L [place] % (Auto) 8.7 Eos % (Auto) 2.0 Baso % (Auto) 0.4 Lymph # (Auto) 1.4 [place] # (Auto) 0.7 Eos # (Auto) 0.2 Baso # (Auto) 0.0 Abs Immat Gran (auto) 0.04 H Absolute Neuts (auto) 6.0 Absolute Nucleated RBC 0.000 Nucleated RBC % (auto) 0.0 Anion Gap 11 L Estim Creat Clear Calc 133.6 Estimated GFR > 60 Random Glucose 78 Calcium 9.2 Procedures Date of Service Date of Service: 04/08/21 Progress Note: A&P Assessment and plan (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 Assessment and Plan: Status post right colon resection Good GI function Looks well Abdomen soft and benign Denies significant pain Diet as tolerated Likely home this afternoon Discharge instructions explained Path report - no disease in the lymph nodes, no evidence of residual carcinoid Fall Risk Details Was a [facility] Consult for Fall Risk requested: no Current Medications: Current Medications Diphenhydramine HCl (Diphenhydramine Hcl 50 Mg/Ml Vial) 25 mg IVPUSH Q6H PRN PRN Reason: Itching Docusate Sodium (Docusate Sodium 100 Mg Capsule) 100 mg PO BID [facility] Last Admin: 04/07/21 19:41 Dose: 100 mg Documented by: Hydromorphone HCl (Hydromorphone Hcl 1 Mg/Ml Syringe) 0.5 mg IVPUSH Q10M PRN; Protocol PRN Reason: Pain, Severe (Pain Scale 7-10) Last Admin: 04/05/21 01:46 Dose: 0.5 mg Documented by: Ketorolac Tromethamine (Ketorolac Tromethamine 30 Mg/Ml Vial) 15 mg IVPUSH Q6H [facility] Stop: 04/09/21 00:00 Last Admin: 04/08/21 06:57 Dose: 15 mg Documented by: Metoclopramide HCl (Metoclopramide Hcl 10 Mg/2 Ml Vial) 10 mg IVPUSH Q6H [facility] Stop: 04/09/21 00:00 Last Admin: 04/08/21 06:57 Dose: 10 mg Documented by: Morphine Sulfate (Morphine Sulfate 2 Mg/Ml Cartridge) 2 mg IVPUSH Q3H PRN; Protocol PRN Reason: Pain, Severe (Pain Scale 7-10) Last Admin: 04/08/21 00:40 Dose: 2 mg Documented by: Ondansetron HCl (Ondansetron Hcl 4 Mg/2 Ml Vial) 4 mg IVPUSH Q8H PRN PRN Reason: Nausea and Vomiting Last Admin: 04/08/21 00:45 Dose: 4 mg Documented by: Oxycodone HCl (Oxycodone Hcl Immed Release 5 Mg Tablet) 5 mg PO Q4H PRN PRN Reason: Pain, Moderate (Pain Scale 4-6 Oxycodone HCl (Oxycodone Hcl Immed Release 5 Mg Tablet) 10 mg PO Q4H PRN PRN Reason: Pain, Severe (Pain Scale 7-10) Last Admin: 04/08/21 06:56 Dose: 10 mg Documented by: Sodium Chloride (0.9 % Sodium Chloride Flush 3 Ml Syringe) 3 ml IVFLUSH QSHIFT [facility] Last Admin: 04/08/21 06:57 Dose: 3 ml Documented by: Time Spent With Patient Time: Total time spent is greater than 50% in coordination of care (as documented) at patient's floor/unit and/or counseling patient: Time with patient: 15 - 24 minutes Quality Stroke Does the patient have a stroke diagnosis?: No VTE Prior VTE?: No VTE Risk Level:: Surgical - low VTE Device Contraindication: N/A - Device Ordered VTE Drug Contraindication: Treatment Not Indicated
--- NOTE | 2021-04-08 12:07 | MHC.CM.PN ---
Per ROUNDS discussion, Patient is not yet medically cleared for dc (IV Toradol, IV Reglan, IV Morphine); Home is the goal for dc and CM will follow for possible need to adjust the dc plan.
--- NOTE | 2021-04-08 12:40 | PM.EVENT ---
Event Note Date of Service: 04/08/21 Event Note: continues to feel well tolerated breakfast and lunch says she wants to go home looks well abd soft, not distended ok to dc home ffup in office she understands instructions
--- NOTE | 2021-04-08 13:03 | MHC.CM.PN ---
Patient has been medically cleared for dc to home today, self care.
--- NOTE | 2021-07-17 11:26 | P.DS_ITS ---
DS: Providers Provider Date of Service: 04/08/21 Date of admission: 04/04/21 09:32 Primary care physician: Amalia Ashton DS: Diagnosis Discharge Diagnosis (1) Carcinoid tumor of appendix: Status: Resolved DS: Summary Hospital Course Hospital Course: 21-year-old female who had undergone hand assisted laparoscopic right colon resection on April 04, 2021 because of a history of carcinoid tumor. She had a laparoscopic appendectomy in [place] last January,. 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 Because of this T3 tumor, a right colon resection was recommended by the oncologist. She underwent this procedure without any events. She had her Motley catheter was discontinued on the her 1st postop day. She was started on clear liquids and this will advance. She had complained of some nausea and chest pain around the 2nd and 3rd postop day. She continued to tolerate advancement of her diet. On 04/08/2021, she felt much better and had good GI functions. She was therefore discharged on this day. Time Spent with Patient Time attestation: Total time spent providing and/or coordinating discharge services: Discharge coordination time: Less than 30 minutes Quality: Safe Use of Opioids Does Pt have an Active Cancer Diagnosis on the Problem List?: No Quality: Stroke Does the patient have a stroke diagnosis?: No Physical Exam Vital Signs: Vital Signs: Last Vital Signs Temp 98.3 F 04/08/21 08:00 Pulse 74 04/08/21 08:00 Resp 20 04/08/21 08:00 BP 114/60 04/08/21 08:00 Pulse Ox 97 04/08/21 03:38 BMI result Body Mass Index 27.1 Const: General: comfortable and no acute distress Orientation/consciousness: patient oriented x3 Neck: Neck: Yes no lymphadenopathy Resp: Auscultation: clear to auscultation bilaterally Cardio: Rhythm: regular rhythm GI: Other: All incisions well healing, clean and dry Palpation (GI): Soft to palpation, nontender and no guarding Neuro: General: patient oriented x3 DS: Data Data Completed and Pending Completed studies during hospitalization [Text1]: Pending at discharge 04/04/21 08:42 Surgical [PTH] Routine Procedures Excision of Right Large Intestine, Percutaneous Endoscopic Approach (04/04/21) Labs on day of discharge: Laboratory Results WBC 8.4 X10*3/uL (4.8-10.8) 04/07/21 10:05 RBC 3.98 X10*6/uL (4.20-5.50) L 04/07/21 10:05 Hgb 11.3 g/dl (12.0-16.0) L 04/07/21 10:05 Hct 34.9 % (37.0-47.0) L 04/07/21 10:05 MCV 87.7 fL (80.0-98.0) 04/07/21 10:05 MCH 28.4 pg (27.0-33.0) 04/07/21 10:05 MCHC 32.4 g/dl (31.0-35.0) 04/07/21 10:05 RDW 13.2 % (11.0-16.0) 04/07/21 10:05 Plt Count 245 X10*3/uL (160-400) 04/07/21 10:05 MPV 11.3 fL (9.4-12.3) 04/07/21 10:05 Immature Gran % (Auto) 0.5 % (0.0-0.4) H 04/07/21 10:05 Neut % (Auto) 72.0 % (45-73) 04/07/21 10:05 Lymph % (Auto) 16.4 % (20-40) L 04/07/21 10:05 [place] % (Auto) 8.7 % (2-11) 04/07/21 10:05 Eos % (Auto) 2.0 % (0-4) 04/07/21 10:05 Baso % (Auto) 0.4 % (0-2) 04/07/21 10:05 Lymph # (Auto) 1.4 X10*3/uL (1.2-4.9) 04/07/21 10:05 [place] # (Auto) 0.7 X10*3/uL (0.1-1.2) 04/07/21 10:05 Eos # (Auto) 0.2 X10*3/uL (0.0-0.4) 04/07/21 10:05 Baso # (Auto) 0.0 X10*3/uL (0.0-0.2) 04/07/21 10:05 Abs Immat Gran (auto) 0.04 X10*3/uL (0.00-0.03) H 04/07/21 10:05 Absolute Neuts (auto) 6.0 x10*3/uL (2.0-8.3) 04/07/21 10:05 Absolute Nucleated RBC 0.000 X10*3/uL (0.0-0.012) 04/07/21 10:05 Nucleated RBC % (auto) 0.0 /100WBC (0.0-0.2) 04/07/21 10:05 Sodium 137 mmol/L (135-145) 04/07/21 10:05 Potassium 4.1 mmol/L (3.3-5.1) 04/07/21 10:05 Chloride 104 mmol/L (96-108) 04/07/21 10:05 Carbon Dioxide 26 mmol/L (22-29) 04/07/21 10:05 Anion Gap 11 (12-20) L 04/07/21 10:05 BUN 9 mg/dL (9-16) 04/07/21 10:05 Creatinine 0.70 mg/dL (0.5-1.4) 04/07/21 10:05 Estim Creat Clear Calc 133.6 04/07/21 10:05 Estimated GFR > 60 04/07/21 10:05 Random Glucose 78 mg/dL (60-115) 04/07/21 10:05 Calcium 9.2 mg/dL (8.4-10.2) 04/07/21 10:05 Urine Test NEGATIVE (NEGATIVE) 04/04/21 06:20 COVID-19 (BHARATHI) Negative (Negative) 04/04/21 06:15 COVID-19 Clin Com See Note 04/04/21 06:15 Blood Type O Positive 04/04/21 06:24 Antibody Screen NEGATIVE 04/04/21 06:24 Discharge Plan Discharge Patient Disposition: Home, Self-Care Discharge Diagnosis: carcinoid tumor; s/p YVES right colectomy Referrals: Amalia Ashton [Primary Care Provider] - 1 Week Jan Douglas MD [Physician] - 04/17/21 Discharge Medications: No Action oxycodone 5 mg tablet 5 mg PO TID PRN (Reason: pain) Qty: 10 0RF [id number]-qypmomxllwfwn-lrdn [Fioricet] 50-300-40 mg capsule 1 cap PO Q6H PRN (Reason: headache) Qty: 30 0RF ondansetron 4 mg tablet,disintegrating 4 mg PO Q8H PRN (Reason: nausea) Qty: 20 0RF Discharge Orders: Discharge Order (Routine); Ordered 04/08/21 Ordered By: Jan Douglas Diet: other Activity on Discharge: No heavy lifting Stand Alone Forms: Patient Portal Discharge page Activity Restrictions/Additional Instructions: If the incision area is tender, you may apply an ice pack for short intervals (No more than 20 minutes on, followed by at least 20 minutes off). Do not apply heat. Do not use creams, lotions, or topical antibiotics unless instructed to do so by your surgeon. These can cause infection or allergic reaction. Ok to shower 24 hours after your surgery. Remove bandaids in 2 days and replace. You have steri strips (small white cloth strips) covering your incision- these will fall off ~1 week. Follow up in office with Dr. Douglas in 2 weeks. ([phone]) No heavy lifting (>10-20lbs)! Low residue diet. Call Your Doctor If: -Your temperature exceeds 101.5? F -You experience excessive pain or swelling -You have an unexpected reaction to medication -You have excessive bleeding -You experience continued vomiting/nausea -Your incision begins to separate -Your incision shows signs of infection such as increased redness, swelling, excessive pain, drainage (light blood or clear fluid is normal) or heat Care Plan Goals: Return to baseline health and gradual return to activity following recovery period. Health Concerns: carcinoid tumor of appendix Plan of Treatment: s/p YVES right colectomy 04/04/21 F/u in office Assessment: Doing well post op Discharge Date/Time: 04/08/21 14:16
== END 2021-04-08 14:16 | disposition home or self-care (01) | DRG 231 ==
LOC: HO.SSSA 09:35 → HO.S3 17:31
PROVIDERS: Nurse Practitioner; Physician Assistant Surgical; Surgery; Admitting Provider Surgery; PCP Nurse Practitioner; Visit Provider Surgery
PROC: 0DBF4ZZ Excision of Right Large Intestine, Percutaneous Endoscopic Approach (ICD-10-PCS; principal; 2021-04-04 07:30)
DX: C7A.020 Malignant carcinoid tumor of the appendix (principal); Z20.822 Contact with and (suspected) exposure to COVID-19
CPT/HCPCS: 36415; 80048; 81025; 85025; 86850; 86900; 86901; 87635; 88309; 99024; C1758; J0131; J1100; J1170; J1885; J2250; J2270; J2405; J2550; J2765; J3010

== ENCOUNTER → 2021-04-17 10:40 | Outpatient (BNVA) | payer MEDICAID, SELFPAY | PROVIDERS: PCP Nurse Practitioner; Referring Provider Nurse Practitioner; Visit Provider Surgery | DX: Z48.815 Encounter for surgical aftercare following surgery on the digestive system (principal); Z87.19 Personal history of other diseases of the digestive system | CPT/HCPCS: 99212 ==

== ENCOUNTER 2021-06-25 12:25 | Emergency (ER) | payer MEDICAID, SELFPAY ==
--- NOTE | ~2021-06-25 | CT_ITS ---
EXAMINATION: CT ABDOMEN AND PELVIS WITH CONTRAST CLINICAL INFORMATION: Abdominal pain status post appendectomy, carcinoma COMPARISON: CT abdomen pelvis 03/26/2021 TECHNIQUE: Multidetector volumetric images were obtained from the superior aspect of the liver through the pubic symphysis following administration 85 mL of Omnipaque 350 intravenous contrast. Sagittal and coronal reformatted images were obtained on the technologist's workstation. Oral contrast: No This CT examination was performed using dose optimization techniques as appropriate, variously including the following: *Automated exposure control *Adjustment of mA and/or kV according to patient size (this includes techniques or standardized protocols for targeted exams where dose is matched to indication/reason for exam; i.e. extremities or head) *Use of iterative reconstruction technique DLP: 533 mGy-cm FINDINGS: LUNG BASES: Unremarkable. ABDOMINAL AND PELVIC WALL: Unremarkable. LIVER AND BILIARY TREE: Unremarkable. GALLBLADDER: Unremarkable. PANCREAS: Unremarkable. SPLEEN: Unremarkable. ADRENAL GLANDS: Unremarkable. KIDNEYS AND URETERS: Unremarkable. GASTROINTESTINAL TRACT: Several dilated loops of small bowel are seen in the left upper quadrant measuring up to 3.3 cm which appears to somewhat gradually transition, 3:24, to decompressed bowel, with the clustered appearance of loops of small bowel. Gas and stool are present in the distal colon. No bowel wall thickening or loss of bowel wall enhancement. There is subtle infiltration of the fat along the right paracolic gutter, 3:52, where previously previously trace fluid was seen which has intervally resolved. Post surgical changes of prior colectomy and appendectomy. VASCULAR: Unremarkable. LYMPH NODES/PERITONEUM: Previously seen small mesenteric nodes appear decreased from prior, for example a 0.4 cm short axis mesenteric node, 3:33 previously measured 0.6 cm. No pathologically enlarged nodes. FREE FLUID: Trace free fluid in the pelvis similar to prior. BLADDER: Unremarkable. PELVIC VISCERA: Unremarkable. OSSEOUS STRUCTURES: Unremarkable. CT/CT abdomen pelvis w con IMPRESSION: Several dilated loops of small bowel are seen in the left upper quadrant measuring up to 3.3 cm which appears to somewhat gradually transition to decompressed bowel, favored to reflect a partial small bowel obstruction. Given the morphology of several clusters loops of bowel, this may be secondary to left paraduodenal internal hernia.. Gas and stool are present within the distal small bowel and colon. There is subtle infiltration of the fat along the right paracolic gutter where previously previously trace fluid was seen, of indeterminate etiology, however given provided history of malignancy early peritoneal disease should be excluded. Consider further characterization with PET/CT or short interval follow-up CT abdomen pelvis to assess stability. Interval resolution of the previously seen trace fluid in the right paracolic gutter, however with persistent trace right fluid in the pelvis. Previously seen small mesenteric nodes appear decreased from prior, with no pathologically enlarged lymph nodes.
[2021-06-25 13:56] VITALS: BP 107/72; PULSE 92; RESP 18; TEMP 36.8; O2SAT 98; BMI 27.0
[2021-06-25 14:10] LABS: Hematocrit 41.3 % (37.0-47.0); Hemoglobin 13.3 g/dl (12.0-16.0); Mean Corpuscular HGB Conc 32.2 g/dl (31.0-35.0); Mean Corpuscular Hemoglobin 27.3 pg (27.0-33.0); Mean Corpuscular Volume 84.8 fL (80.0-98.0); Mean Platelet Volume 11.6 fL (9.4-12.3); Platelet Count 186 X10*3/uL (160-400); Red Blood Count 4.87 X10*6/uL (4.20-5.50); Red Cell Distribution Width 13.5 % (11.0-16.0); White Blood Count 5.2 X10*3/uL (4.8-10.8)
[2021-06-25 14:13] LABS: Appearance Urine CLEAR; Color Urine YELLOW; Glucose Urine UA NEG (NEG); Leukocyte Esterase Urine 1+ (NEG); Nitrite Urine NEG (NEG); Specific Gravity - Urine >= 1.030 (1.005-1.025); UACC Culture Trigger YES; Urine Blood NEG (NEG); Urine Ketones NEG (NEG); Urine Protein TRACE MG/DL (NEG-TRACE)
[2021-06-25 14:22] LABS: Bacteria Urine 1+ /LPF; Mucus Urine TRACE /LPF; RBC Urine 0 /HPF (0); Squamous Epithelial Cell Urine 3+ /LPF
[2021-06-25 14:32] LABS: Alanine Aminotransferase 16 U/L (0-31); Albumin Level 4.4 g/dL (3.5-5.0); Alkaline Phosphatase 86 U/L (39-117); Anion Gap 11 (12-20); Aspartate Amino Transferase 23 U/L (5-31); Bilirubin Total 0.6 mg/dL (0.0-1.0); Blood Urea Nitrogen 6 mg/dL (9-16); Calcium 9.6 mg/dL (8.4-10.2); Carbon Dioxide 24 mmol/L (22-29); Chloride 107 mmol/L (96-108); Creatinine Clr Calc Pharmacy 119.8; Estimated Glomerular Filt Rate > 60; Glucose Random 84 mg/dL (60-115); Potassium 4.2 mmol/L (3.3-5.1); Sodium 138 mmol/L (135-145); Total Protein 7.4 g/dL (6.5-8.0)
[2021-06-25 14:53] LABS: Atypical Lymph Absolute Manual 0.4 x10*3/uL; Atypical Lymphs Percent Manual 7 % (0-6); Band Neutrophils Percent 0 % (3-5); Basophils Abs Manual 0.1 X10*3/uL (0.0-0.2); Basophils Percent Manual 1 % (0-2); Eosinophils Absolute Manual 0.1 X10*3/uL (0.0-0.4); Eosinophils Percent Manual 2 % (0-4); Lymphocytes Percent Manual 38 % (20-40); Monocytes Absolute Manual 0.2 X10*3/uL (0.1-1.2); Monocytes Percent Manual 3 % (2-11); Neutrophils Absolute Manual 2.5 X10*3/uL (2.0-8.3); Neutrophils Percent Manual 49 % (45-73)
[2021-06-25 14:55] LABS: Large Platelet PRESENT; Platelet Estimate NORMAL (NORMAL); Platelet Morphology Comment NOTED; RBC Morphology NORMAL
--- NOTE | 2021-06-25 16:38 | ED.ABDPAIN ---
HPI - Abdominal Pain General Chief Complaint: Abdominal Pain Stated Complaint: abnormal blood pressure Time Seen by Provider: 06/25/21 16:28 Source: patient Mode of arrival: ambulatory Limitations: no limitations History of Present Illness HPI narrative: 21-year-old female presents with several days of nausea, diarrhea, abdominal pain, and fatigue. Patient reports that she has had multiple abdominal surgeries in the past, last 1 being in March, states that she has not felt well since then. However over the past few days her symptoms have exacerbated and now has accompanied fatigue. MD elicited complaint: abdominal pain Pertinent past history: other (Appendiceal cancer, right hemicolectomy) Onset (ago): week(s) Pain Consistency: constant Location: diffuse Severity: moderate Pain scale (0-10): 7 Quality: aching Exacerbating factors: eating, vomiting and movement Relieving factors: nothing Context: recent surgery/procedure Associated symptoms: nausea, vomiting and diarrhea Related Data Home Medications Medication Instructions Recorded Confirmed No Known Home Meds 06/25/21 06/25/21 Allergies Allergy/AdvReac Type Severity Reaction Status Date / Time No Known Allergies Allergy Verified 06/25/21 13:59 [No Known Allergies*] Review of Systems Review of Systems Constitutional: No Weight loss, No Fever, No Chills, No Night Sweats, positive Fatigue, No Malaise ENT/Mouth: No Hearing loss, No Ear Pain, No Nasal Congestion, No Sinus Pain, No Hoarseness, No sore throat, No Rhinorrhea, No Swallowing Difficulty Eyes: No Eye Pain, No Swelling, No Redness, No Foreign Body, No Discharge, No Vision Changes Cardiovascular: No Chest Pain, No SOB, No Dyspnea on Exertion, No Orthopnea, No Edema, No Palpitations Respiratory: No Cough, No Sputum, No Wheezing, No Smoke Exposure, No Dyspnea Gastrointestinal: Positive Nausea, Positive Vomiting, positive Diarrhea, positive abdominal Pain, No Hematochezia, No Melena Genitourinary: no irregular bleeding, No Dysuria, No Urinary Frequency, No Hematuria, No Urinary Incontinence, No Urgency, No Flank Pain, No Urinary Flow Changes, No Hesitancy Musculoskeletal: No joint pain, No Myalgias, No Joint Swelling Skin: No Skin Lesions, No rash Neuro: No Weakness, No Numbness, No Paresthesias, No Loss of Consciousness, No Dizziness, No Headache Psych: No Anxiety/Panic, No Depression, No SI/HI/AH/VH, No Social Issues Heme/Lymph: No Bruising, No Bleeding,No Lymphadenopathy Endocrine: No Polyuria, No Polydipsia, No Temperature Intolerance Yes all other systems are reviewed and are negative [facility] Past Medical History Attestation statement: The following information was validated with the patient. Source: old records reviewed Medical History Hx of appendicitis Hx of malignant carcinoid tumor Surgical History History of bladder surgery Hx of appendectomy Status post laparoscopic colectomy (~04/04/21) Family History Family History Maternal Uncle Cancer Other Diabetes Social History Social History Household Members: Other Household Members Other:: roommate Housing: House Are you a primary care management associate to a significant other at home: No Do you presently have visiting nurse or other home services: No Alcohol intake: current Alcohol intake frequency: does not drink Patient Tobacco Use Status: Never used Tobacco Substance Use Type: Marijuana Advance Directives: No Advance Directives Information Provided: No service: No Physical Exam ED Vital Signs: Vital Signs - 24 hr 06/25/21 13:56 06/25/21 16:47 06/25/21 19:50 Temperature 98.3 F 99.5 F Pulse Rate 92 70 85 Respiratory Rate 18 16 16 Blood Pressure 107/72 111/57 L 108/54 L Pulse Oximetry 98 100 99 BMI result Body Mass Index 27.0 Appearance: Alert. Oriented X3. Mild distress. Eyes: Pupils equal, round and reactive to light. Sclera nonicteric. ENT: Pharynx normal. Moist mucous membranes. Neck: Normal inspection. Neck supple. CVS: Normal heart rate and rhythm. Pulses normal. Respiratory: No respiratory distress. Breath sounds normal. Abdomen: Soft and diffusely tender without rigidity or distention. Hyperactive bowel sounds. Skin: Skin warm and dry. Normal skin color. Normal skin turgor. Extremities: No lower extremity edema. Moves all extremities against resistance. Neuro: No motor deficit. No sensory deficit. Cranial nerves 2-12 intact. Course Course Course Narrative: 21-year-old female presents with several days of nausea, diarrhea, abdominal pain and fatigue. 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 She presented to Dr. Douglas in March of 2021 for surgical evaluation for hemicolectomy. She stated that since her surgeries she has not really felt right however over the past several days the feeling has intensified. CBC is normal however she has band neutrophils of 0%, atypical lymphs are 7%, order for mono test was negative. Chemistries is negative. Urinalysis mildly positive with positive leukocyte esterase but she does not describe any urinary symptoms. COVID and flu negative. 19:35 CT scan indicative of partial small-bowel obstruction, given the morphology of several clusters of loops of bowel this may be secondary to left paraduodenal internal hernia,with subtle infiltration of the fat along the right paracolic gutter where previously trace fluid was seen however given her provided history of malignancy early peritoneal disease should be excluded with consideration of PET CT scan or short interval follow-up CT of abdomen and pelvis. with Dr. Castaneda regarding scan. 20:18 discussion with hospitalist, deferred to surgery. Discussion with Dr. Castaneda, plan to admit to his service. Consultations Consultation #1: Dr. Castaneda Time: 19:35 Consultation #2: Mira Time: 20:16 Consultation #3: Tonya Time: 20:24 MDM - Abdominal Pain Differential Diagnosis Differential diagnosis: Likely abdominal pain, bowel perforation, constipation and small bowel obstruction Medical Records Attestation: I reviewed the patient's medical records. Lab Data Attestation: I reviewed the patient's lab results. Result diagrams: 06/25/21 14:00 06/25/21 14:00 Labs: Lab Results 06/25/21 06/25/21 06/25/21 Range/Units 14:00 14:00 14:00 WBC 5.2 (4.8-10.8) X10*3/uL RBC 4.87 D (4.20-5.50) X10*6/uL Hgb 13.3 (12.0-16.0) g/dl Hct 41.3 (37.0-47.0) % MCV 84.8 (80.0-98.0) fL MCH 27.3 (27.0-33.0) pg MCHC 32.2 (31.0-35.0) g/dl RDW 13.5 (11.0-16.0) % Plt Count 186 (160-400) X10*3/uL MPV 11.6 (9.4-12.3) fL Immature Gran % (Auto) Cancelled Neut % (Auto) Cancelled Lymph % (Auto) Cancelled [place] % (Auto) Cancelled Eos % (Auto) Cancelled Baso % (Auto) Cancelled Lymph # (Auto) Cancelled [place] # (Auto) Cancelled Eos # (Auto) Cancelled Baso # (Auto) Cancelled Abs Immat Gran (auto) Cancelled Absolute Neuts (auto) Cancelled Absolute Nucleated RBC 0.000 (0.0-0.012) X10*3/uL Nucleated RBC % (auto) 0.0 (0.0-0.2) /100WBC Neutrophils % (Manual) 49 (45-73) % Band Neutrophils % 0 L (3-5) % Lymphocytes % (Manual) 38 (20-40) % Atypical Lymphs % (Man) 7 H (0-6) % Monocytes % (Manual) 3 (2-11) % Eosinophils % (Manual) 2 (0-4) % Basophils % (Manual) 1 (0-2) % Abs Neuts (Manual) 2.5 (2.0-8.3) X10*3/uL Lymphocytes # (Manual) 2.0 (1.2-4.9) X10*3/uL Atyp Lymphs # (Manual) 0.4 x10*3/uL Monocytes # (Manual) 0.2 (0.1-1.2) X10*3/uL Eosinophils # (Manual) 0.1 (0.0-0.4) X10*3/uL Basophils # (Manual) 0.1 (0.0-0.2) X10*3/uL Platelet Estimate NORMAL (NORMAL) Large Platelets PRESENT Plt Morphology Comment NOTED RBC Morphology NORMAL Sodium 138 (135-145) mmol/L Potassium 4.2 (3.3-5.1) mmol/L Chloride 107 (96-108) mmol/L Carbon Dioxide 24 (22-29) mmol/L Anion Gap 11 L (12-20) BUN 6 L (9-16) mg/dL Creatinine 0.78 (0.5-1.4) mg/dL Estim Creat Clear Calc 119.8 Estimated GFR > 60 Random Glucose 84 (60-115) mg/dL Calcium 9.6 (8.4-10.2) mg/dL Total Bilirubin 0.6 (0.0-1.0) mg/dL AST 23 D (5-31) U/L ALT 16 (0-31) U/L Alkaline Phosphatase 86 (39-117) U/L Total Protein 7.4 (6.5-8.0) g/dL Albumin 4.4 (3.5-5.0) g/dL Urine Color Urine Appearance Urine pH (5.0-8.0) Ur Specific [place] (1.005-1.025) Urine Protein (NEG-TRACE) MG/DL Urine Glucose (UA) (NEG) MG/DL Urine Ketones (NEG) MG/DL Urine Blood (NEG) Urine Nitrite (NEG) Ur Leukocyte Esterase (NEG) Urine RBC (0) /HPF Urine WBC (0-4) /HPF Ur Squamous Epith Cells /LPF Urine Bacteria /LPF Urine Mucus /LPF Urine Test (NEGATIVE) Monoscreen Negative (Negative) Influenza Type A (PCR) (Negative) Influenza Type B (PCR) (Negative) RSV RNA Qual (PCR) (Negative) SARS-CoV-2 RNA (RT-PCR) (Negative) 06/25/21 06/25/21 06/25/21 Range/Units 14:07 14:07 17:58 WBC (4.8-10.8) X10*3/uL RBC (4.20-5.50) X10*6/uL Hgb (12.0-16.0) g/dl Hct (37.0-47.0) % MCV (80.0-98.0) fL MCH (27.0-33.0) pg MCHC (31.0-35.0) g/dl RDW (11.0-16.0) % Plt Count (160-400) X10*3/uL MPV (9.4-12.3) fL Immature Gran % (Auto) Neut % (Auto) Lymph % (Auto) [place] % (Auto) Eos % (Auto) Baso % (Auto) Lymph # (Auto) [place] # (Auto) Eos # (Auto) Baso # (Auto) Abs Immat Gran (auto) Absolute Neuts (auto) Absolute Nucleated RBC (0.0-0.012) X10*3/uL Nucleated RBC % (auto) (0.0-0.2) /100WBC Neutrophils % (Manual) (45-73) % Band Neutrophils % (3-5) % Lymphocytes % (Manual) (20-40) % Atypical Lymphs % (Man) (0-6) % Monocytes % (Manual) (2-11) % Eosinophils % (Manual) (0-4) % Basophils % (Manual) (0-2) % Abs Neuts (Manual) (2.0-8.3) X10*3/uL Lymphocytes # (Manual) (1.2-4.9) X10*3/uL Atyp Lymphs # (Manual) x10*3/uL Monocytes # (Manual) (0.1-1.2) X10*3/uL Eosinophils # (Manual) (0.0-0.4) X10*3/uL Basophils # (Manual) (0.0-0.2) X10*3/uL Platelet Estimate (NORMAL) Large Platelets Plt Morphology Comment RBC Morphology Sodium (135-145) mmol/L Potassium (3.3-5.1) mmol/L Chloride (96-108) mmol/L Carbon Dioxide (22-29) mmol/L Anion Gap (12-20) BUN (9-16) mg/dL Creatinine (0.5-1.4) mg/dL Estim Creat Clear Calc Estimated GFR Random Glucose (60-115) mg/dL Calcium (8.4-10.2) mg/dL Total Bilirubin (0.0-1.0) mg/dL AST (5-31) U/L ALT (0-31) U/L Alkaline Phosphatase (39-117) U/L Total Protein (6.5-8.0) g/dL Albumin (3.5-5.0) g/dL Urine Color YELLOW Urine Appearance CLEAR Urine pH 6.0 (5.0-8.0) Ur Specific [place] >= 1.030 H (1.005-1.025) Urine Protein TRACE (NEG-TRACE) MG/DL Urine Glucose (UA) NEG (NEG) MG/DL Urine Ketones NEG (NEG) MG/DL Urine Blood NEG (NEG) Urine Nitrite NEG (NEG) Ur Leukocyte Esterase 1+ H (NEG) Urine RBC 0 (0) /HPF Urine WBC 1-4 (0-4) /HPF Ur Squamous Epith Cells 3+ /LPF Urine Bacteria 1+ /LPF Urine Mucus TRACE /LPF Urine Test NEGATIVE (NEGATIVE) Monoscreen (Negative) Influenza Type A (PCR) NEGATIVE (Negative) Influenza Type B (PCR) NEGATIVE (Negative) RSV RNA Qual (PCR) NEGATIVE (Negative) SARS-CoV-2 RNA (RT-PCR) NEGATIVE (Negative) Imaging Data CT abdomen pelvis: Attestation: I personally reviewed and interpreted this imaging study as follows: Radiologist's impression: FINDINGS: LUNG BASES: Unremarkable.? ABDOMINAL AND PELVIC WALL:? Unremarkable.? LIVER AND BILIARY TREE: Unremarkable.? GALLBLADDER: Unremarkable.? PANCREAS: Unremarkable.? SPLEEN: Unremarkable.? ADRENAL GLANDS: Unremarkable.? KIDNEYS AND URETERS: Unremarkable.? GASTROINTESTINAL TRACT: Several dilated loops of small bowel are seen in the left upper quadrant measuring up to 3.3 cm which appears to somewhat gradually transition, 3:24, to decompressed bowel, with the clustered appearance of loops of small bowel. Gas and stool are present in the distal colon. No bowel wall thickening or loss of bowel wall enhancement. There is subtle infiltration of the fat along the right paracolic gutter, 3:52, where previously previously trace fluid was seen which has intervally resolved. Post surgical changes of prior colectomy and appendectomy. VASCULAR: Unremarkable. LYMPH NODES/PERITONEUM: Previously seen small mesenteric nodes appear decreased from prior, for example a 0.4 cm short axis mesenteric node, 3:33 previously measured 0.6 cm. No pathologically enlarged nodes. FREE FLUID: Trace free fluid in the pelvis similar to prior. BLADDER: Unremarkable.? PELVIC VISCERA: Unremarkable. OSSEOUS STRUCTURES: Unremarkable.? CT/CT abdomen pelvis w con IMPRESSION: ? Several dilated loops of small bowel are seen in the left upper quadrant measuring up to 3.3 cm which appears to somewhat gradually transition to decompressed bowel, favored to reflect a partial small bowel obstruction. Given the morphology of several clusters loops of bowel, this may be secondary to left paraduodenal internal hernia.. Gas and stool are present within the distal small bowel and colon. ? There is subtle infiltration of the fat along the right paracolic gutter where previously previously trace fluid was seen, of indeterminate etiology, however given provided history of malignancy early peritoneal disease should be excluded. Consider further characterization with PET/CT or short interval follow-up CT abdomen pelvis to assess stability. ? Interval resolution of the previously seen trace fluid in the right paracolic gutter, however with persistent trace right fluid in the pelvis. ? Previously seen small mesenteric nodes appear decreased from prior, with no pathologically enlarged lymph nodes. ? Critical Care Time Critical Care Time Critical Care Time: Yes Total Critical Care Time: 45 Attestation: I have personally provided critical care time exclusive of time spent on separately billable procedures. Time includes review of laboratory data, radiology results, discussion with consultants, and monitoring for potential decompensation. Interventions were performed as documented. Discharge Plan Discharge Patient Disposition: Admitted As Inpatient Prescriptions: No Action No Known Home Meds 0RF
[2021-06-25 16:47] VITALS: BP 111/57; PULSE 70; RESP 16; O2SAT 100
[2021-06-25 17:19] LABS: Monotest Negative (Negative)
[2021-06-25 17:30] LABS: UPreg QC Valid YES; Urine Pregnancy NEGATIVE (NEGATIVE)
[2021-06-25] MEDS: iohexoL 350 MG/ML 100 ML INFUS..BTL IV (18:12)
[2021-06-25 18:39] LABS: Influenza A PCR NEGATIVE (Negative); Influenza B PCR NEGATIVE (Negative); Resp Syncy Virus RNA Qual PCR NEGATIVE (Negative); SARS COV2 PCR INHOUSE NEGATIVE (Negative)
[2021-06-25] MEDS: ondansetron HCL 4 MG/2 ML VIAL IVPUSH (18:54)
[2021-06-25] MEDS: 0.9 % Sodium Chloride 1,000 ML 999 ML IVCONT (18:55)
[2021-06-25 19:50] VITALS: BP 108/54; PULSE 85; RESP 16; TEMP 37.5; O2SAT 99
--- NOTE | 2021-06-25 19:50 | PC.NURSE ---
Pt requesting food/drink, per SEAMSTRESS FITTER, pt is NPO until plan with surgeon is made. Pt is aware of NPO status.
--- NOTE | 2021-06-25 19:59 | PC.NURSE ---
DRAPERY AND UPHOLSTERY ESTIMATOR at bedside discussing plan to admit for possible surgery.
--- NOTE | 2021-06-25 20:12 | PHA.MEDREC ---
Pharmacy Consult ? Medication Reconciliation Pharmacy has completed the medication reconciliation.
[2021-06-25] MEDS: Acetaminophen 325 MG TABLET 650 MG PO (20:45)
--- NOTE | 2021-06-25 20:52 | PC.NURSE ---
Pt is requesting to leave AMA, states she is stressed out and overwhelmed and needs to go home to think. This RN and PURSE SEINING HAND at bedside reeducating pt on the importance of following through with care to avoid surgery. Pt continues refusing, requesting IV to be removed. Pt medicated with Tylenol per request for RAPP. Awaiting discharge paperwork.
== END 2021-06-25 21:22 | disposition left against medical advice (07) ==
LOC: HO.ED 20:25 → HO.EDOVER 20:53 → HO.ED 21:03
PROVIDERS: Nurse Practitioner Family; Emergency Provider Internal Medicine
DX: R10.9 Unspecified abdominal pain (principal); R53.83 Other fatigue; Z20.822 Contact with and (suspected) exposure to COVID-19; Z85.038 Personal history of other malignant neoplasm of large intestine
CPT/HCPCS: 0241U; 36415; 74177; 80053; 81001; 81025; 85007; 85027; 86308; 87086; 96361; 96374; 99284; 99291; J2405; Q9967

== ENCOUNTER 2021-06-26 14:51 | Observation (INO) | payer MEDICAID, SELFPAY ==
[2021-06-26 16:07] VITALS: BP 110/61; PULSE 94; RESP 18; TEMP 36.6; O2SAT 98; BMI 25.8
--- NOTE | 2021-06-26 17:15 | ED.ABDPAIN ---
HPI - Abdominal Pain General Chief Complaint: Abdominal Pain Stated Complaint: small intestine obstruction/dizziness/dehydration Source: patient Mode of arrival: ambulatory Limitations: no limitations History of Present Illness HPI narrative: 21-year-old female presents for abdominal pain with known partial small-bowel obstruction diagnosed yesterday by CT scan. Patient left AMA. She presents today for admission. Dr. Douglas is in the emergency department waiting for this patient. MD elicited complaint: abdominal pain Pertinent past history: other (Carcinoid tumor of appendix, status post right hemicolectomy) Onset (ago): week(s) Pain Consistency: constant Location: diffuse Severity: moderate Pain scale (0-10): 8 Quality: aching and fullness Migration to: no migration Exacerbating factors: eating, vomiting and movement Relieving factors: nothing Context: recent surgery/procedure Associated symptoms: nausea and vomiting Related Data Patient : No Home Medications Medication Instructions Recorded Confirmed No Known Home Meds 06/25/21 06/26/21 Allergies Allergy/AdvReac Type Severity Reaction Status Date / Time No Known Allergies Allergy Verified 06/25/21 13:59 [No Known Allergies*] Review of Systems Review of Systems Constitutional: No Weight loss, No Fever, No Chills, No Night Sweats, No Fatigue, No Malaise ENT/Mouth: No Hearing loss, No Ear Pain, No Nasal Congestion, No Sinus Pain, No Hoarseness, No sore throat, No Rhinorrhea, No Swallowing Difficulty Eyes: No Eye Pain, No Swelling, No Redness, No Foreign Body, No Discharge, No Vision Changes Cardiovascular: No Chest Pain, No SOB, No Dyspnea on Exertion, No Orthopnea, No Edema, No Palpitations Respiratory: No Cough, No Sputum, No Wheezing, No Smoke Exposure, No Dyspnea Gastrointestinal: Positive Nausea, Positive Vomiting, positive Diarrhea, positive abdominal Pain, No Hematochezia, No Melena Genitourinary: no irregular bleeding, No Dysuria, No Urinary Frequency, No Hematuria, No Urinary Incontinence, No Urgency, No Flank Pain, No Urinary Flow Changes, No Hesitancy Musculoskeletal: No joint pain, No Myalgias, No Joint Swelling Skin: No Skin Lesions, No rash Neuro: No Weakness, No Numbness, No Paresthesias, No Loss of Consciousness, No Dizziness, No Headache Psych: No Anxiety/Panic, No Depression, No SI/HI/AH/VH, No Social Issues Heme/Lymph: No Bruising, No Bleeding,No Lymphadenopathy Endocrine: No Polyuria, No Polydipsia, No Temperature Intolerance Yes all other systems are reviewed and are negative [facility] Past Medical History Attestation statement: The following information was validated with the patient. Source: old records reviewed Medical History Hx of appendicitis Hx of malignant carcinoid tumor Surgical History History of bladder surgery Hx of appendectomy Status post laparoscopic colectomy (~04/04/21) Family History Family History Maternal Uncle Cancer Other Diabetes Social History Social History Household Members: Other Household Members Other:: roommate Housing: House Are you a primary health care legal assistant to a significant other at home: No Do you presently have visiting nurse or other home services: No Alcohol intake: current Alcohol intake frequency: does not drink Patient Tobacco Use Status: Never used Tobacco Substance Use Type: Marijuana Advance Directives: No Advance Directives Information Provided: No Patient : No service: No Physical Exam ED Vital Signs: Vital Signs - 24 hr 06/26/21 16:07 Temperature 98 F Pulse Rate 94 Respiratory Rate 18 Blood Pressure 110/61 Pulse Oximetry 98 BMI result Body Mass Index 25.8 Appearance: Alert. Oriented X3. Moderate emotional distress and anxiety Eyes: Pupils equal, round and reactive to light. ENT: Pharynx normal. Neck: Normal inspection. Neck supple. CVS: Normal heart rate and rhythm. Pulses normal. Respiratory: No respiratory distress. Breath sounds normal. Abdomen: Soft and diffusely tender. Nondistended. No rigidity. Skin: Skin warm and dry. Normal skin color. Normal skin turgor. Extremities: No lower extremity edema. Gait well-balanced well coordinated. Neuro: No motor deficit. No sensory deficit. Cranial nerves 2-12 intact. Course Course Course Narrative: 21-year-old female presents for admission, was evaluated yesterday by this EMERGENCY VETERINARIAN and diagnosed with partial small-bowel obstruction, patient did leave AMA. She presents today with similar symptoms with dizziness and headache. Dr. Douglas is in the emergency department waiting for this patient for admission to the med surge floor. Labs ordered and admission in progress. Patient admitted by Dr. Douglas. Consultations Consultation #1: Dr. Douglas Time: 17:10 MDM - Abdominal Pain Differential Diagnosis Differential diagnosis: Likely abdominal pain and small bowel obstruction Medical Records Attestation: I reviewed the patient's medical records. Lab Data Attestation: I reviewed the patient's lab results. Result diagrams: 06/26/21 18:15 06/26/21 18:15 Discharge Plan Discharge Clinical Impression: S/P right colectomy, Abdominal pain, Carcinoid tumor of appendix, Small bowel obstruction Patient Disposition: Admitted As Inpatient
--- NOTE | 2021-06-26 17:21 | P.HPGS_ITS ---
History of Present Illness History of Present Illness Date of Service: 06/28/21 Chief complaint: abdominal pain, dizziness Narrative: Jose David Copeland is a 21 year old female who is well known to me. She had undergone HALS right colon resection last March as recommended by the Oncologist. Her path report did not show any residual carcinoid tumor and all her lymph nodes were negative. Since the surgery, she has had multiple complaints of frequent dizziness, irregular bowel habits and periods of not feeling well. She describes seeing small amounts of blood per rectum last week. She was sent to the ED by her PCP yesterday for this. She had a CT scan showing question of PSBO, with postop changes in the right gutter along her previous right colectomy site. She was initially advised admission yesterday but she refused. She says she continues to feels dizzy and is extremely worried about her CT scan report which also mentioned the possibility of a cancer . She also says she has a bad headache. She denies any recent vomitting. She says she has had poor appetite. She has had bowel movements. She has multiple complaints of back pain and sharp abdominal pain all over . Review of Systems Constitutional: Constitutional: Denies chills and Denies fever(s) Cardiovascular: Cardiovascular: Denies chest pain, Denies dyspnea and Denies dyspnea on exertion Respiratory: Respiratory: Denies cough, Denies dyspnea and Denies dyspnea on exertion Gastrointestinal: Gastrointestinal: Denies hematochezia and Denies change in bowel habits Genitourinary: Genitourinary: Denies hematuria Musculoskeletal: Musculoskeletal: Reports back pain and Denies limited range of motion Neurologic: Denies focal weakness and Denies convulsions Psychiatric: Psychiatric: Denies depression and Denies mood swings [facility] Past Medical History Medical History (Updated 06/27/21 @ 08:30 by Jan Douglas MD) Headache Hx of appendicitis Hx of malignant carcinoid tumor Family History Family History Maternal Uncle Cancer Other Diabetes Surgical History Surgical History History of bladder surgery Hx of appendectomy Status post laparoscopic colectomy (~04/04/21) Social History Social History Household Members: Other Household Members Other:: roommate Housing: House Are you a primary occasional caregiver to a significant other at home: No Do you presently have visiting nurse or other home services: No Alcohol intake: current Alcohol intake frequency: does not drink Patient Tobacco Use Status: Never used Tobacco Substance Use Type: Marijuana service: No Current occupational status: unemployed Meds Allergies Allergy/AdvReac Type Severity Reaction Status Date / Time No Known Allergies Allergy Verified 06/25/21 13:59 [No Known Allergies*] Physical Exam Vital Signs: Vital Signs: Last Vital Signs Temp 98 F 06/26/21 16:07 Pulse 94 06/26/21 16:07 Resp 18 06/26/21 16:07 BP 110/61 06/26/21 16:07 Pulse Ox 98 06/26/21 16:07 BMI result Body Mass Index 25.8 Const: Other: looks well but very anxious General: comfortable and no acute distress Orientation/consciousness: patient oriented x3 Neck: Neck: Yes no lymphadenopathy Resp: Auscultation: clear to auscultation bilaterally Cardio: Rhythm: regular rhythm GI: Inspection: No distended Palpation (GI): Soft to palpation, nontender and no guarding Neuro: General: patient oriented x3 Assessment and Plan (1) Abdominal pain: Status: Acute She has multiple complaints of vague abdominal pains, dizziness, and back pain. She has had no vomitting. She had a CT scan yesterday showing dilated small bowel loops in the LUQ with gradual tapering. Clinically, she does not appear obstructed. She is very worried about her CT scan report showing fatty infiltration on the right gutter and is anxious about having cancer . I assured her that these changes are expected from her right colon resections done last March. She has a very benign exam, despite her extreme anxiety at this time. I wlll admit her for observation.I will keep her on clear liquids and give her IV fluids for possible dehydration. She understands the plan well. Quality Stroke Does the patient have a stroke diagnosis?: No VTE Prior VTE?: No VTE Risk Level:: Medical - low VTE Device Contraindication: Treatment Not Indicated VTE Drug Contraindication: Treatment Not Indicated Procedures Date of Service Date of Service: 06/26/21
[2021-06-26 17:53] VITALS: BP 106/56; PULSE 78; RESP 16; O2SAT 99
--- NOTE | 2021-06-26 18:13 | PHA.MEDREC ---
Pharmacy Consult ? Medication Reconciliation Pharmacy has completed the medication reconciliation.
[2021-06-26 18:20] LABS: Basophils Percent Auto 0.6 % (0-2); Eosinophils Absolute Auto 0.1 X10*3/uL (0.0-0.4); Eosinophils Percent Auto 2.1 % (0-4); Hematocrit 39.8 % (37.0-47.0); Hemoglobin 12.9 g/dl (12.0-16.0); Imm Gran Abs Auto 0.03 X10*3/uL (0.00-0.03); Imm Gran Pct Auto 0.5 % (0.0-0.4); Lymphocytes Absolute Auto 3.3 X10*3/uL (1.2-4.9); Lymphocytes Percent Auto 53.6 % (20-40); MANUAL DIFF FLAG SCAN; Mean Corpuscular HGB Conc 32.4 g/dl (31.0-35.0); Mean Corpuscular Hemoglobin 27.4 pg (27.0-33.0); Mean Corpuscular Volume 84.5 fL (80.0-98.0); Mean Platelet Volume 11.5 fL (9.4-12.3); Monocytes Absolute Auto 0.3 X10*3/uL (0.1-1.2); Monocytes Percent Auto 5.2 % (2-11); Neutrophils Absolute Auto 2.4 x10*3/uL (2.0-8.3); Platelet Count 178 X10*3/uL (160-400); Red Blood Count 4.71 X10*6/uL (4.20-5.50); Red Cell Distribution Width 13.6 % (11.0-16.0); SCAN SMEAR FLAG 1; White Blood Count 6.2 X10*3/uL (4.8-10.8)
[2021-06-26] MEDS: Acetaminophen 325 MG TABLET 650 MG PO (18:33)
[2021-06-26 18:34] LABS: Anion Gap 14 (12-20); Blood Urea Nitrogen 4 mg/dL (9-16); Calcium 9.1 mg/dL (8.4-10.2); Carbon Dioxide 21 mmol/L (22-29); Chloride 107 mmol/L (96-108); Estimated Glomerular Filt Rate > 60; Glucose Random 77 mg/dL (60-115); Potassium 4.1 mmol/L (3.3-5.1); Sodium 138 mmol/L (135-145)
[2021-06-26] MEDS: ondansetron HCL 4 MG/2 ML VIAL IVPUSH (18:37)
[2021-06-26] MEDS: Morphine Sulfate 2 MG/ML CARTRIDGE IVPUSH (18:37)
[2021-06-26 18:43] LABS: SLIDE REVIEW VERIFIED
[2021-06-26 19:37] LABS: Influenza A PCR NEGATIVE (Negative); Influenza B PCR NEGATIVE (Negative); Resp Syncy Virus RNA Qual PCR NEGATIVE (Negative); SARS COV2 PCR INHOUSE NEGATIVE (Negative)
[2021-06-26] MEDS: Lactated Ringers 1,000 ML 100 ML IVCONT (19:46)
[2021-06-26 23:47] VITALS: BP 93/58; PULSE 52; RESP 18; TEMP 36.2; O2SAT 99
[2021-06-27] VITALS (9 sets, daily range): BP systolic 85–114; BP diastolic 44–70; PULSE 57–73; RESP 16–18; TEMP 36.1–37.1; O2SAT 98–99
[2021-06-27] MEDS: Acetaminophen 325 MG TABLET PO (02:23)
--- NOTE | 2021-06-27 02:27 | PC.NURSE ---
Report called to Félix BARBOSA in overflow unit.
[2021-06-27] MEDS: Lactated Ringers 1,000 ML 100 ML IVCONT (02:51)
--- NOTE | 2021-06-27 03:54 | PC.NURSE ---
RECEIVED FROM MAIN ER TO BED 9 OVERFLOW..AWAKE..ALERT..ORIENTED X3..RESPIRATIONS EASY..NO DISTRESS ROOM AIR..REMAINS WITH MILD ABDOMINAL PAIN..DOZING W/O DIFFICULTY..LR 100 CC/HR AT ADMIT TO OVERFLOW..CURRENTLY DOZING..NO DISTRESS
--- NOTE | 2021-06-27 08:28 | PM.PNGS ---
Subjective Subjective Date of Service: 06/27/21 Interval history: Main complaint is headache Some right sided pain, chronic No nausea or vomiting Physical Exam Vital Signs: Vital Signs: Last Vital Signs Temp 97.0 F 06/27/21 05:04 Pulse 57 06/27/21 05:04 Resp 16 06/27/21 05:04 BP 93/46 L 06/27/21 05:04 Pulse Ox 98 06/27/21 05:04 BMI result Body Mass Index 25.8 Const: Other: Very anxious General: comfortable and no acute distress Resp: Effort & Inspection: normal respiratory effort Cardio: Rhythm: regular rhythm GI: Palpation (GI): Soft to palpation, not firm, Tenderness to palpation present (GI) (Mild on the right flank area), no guarding and not rigid Extrem: Other: Walking comfortably General: Yes no pedal edema Objective Data Active Medications Acetaminophen (Acetaminophen 325 Mg Tablet) 325 mg PO Q6H PRN PRN Reason: headache Last Admin: 06/27/21 02:23 Dose: 325 mg Documented by: SAMARA Lactated Ringer's (Lr) 1,000 mls @ 100 mls/hr IVCONT .Q10H [facility] Last Admin: 06/27/21 02:51 Dose: 100 mls/hr Documented by: CHRIS Morphine Sulfate (Morphine Sulfate 2 Mg/Ml Cartridge) 2 mg IVPUSH Q3H PRN; Protocol PRN Reason: Pain, Severe (Pain Scale 7-10) Last Admin: 06/26/21 18:37 Dose: 2 mg Documented by: ROSALBA Ondansetron HCl (Ondansetron Hcl 4 Mg/2 Ml Vial) 4 mg IVPUSH Q8H PRN PRN Reason: nausea Sodium Chloride (0.9 % Sodium Chloride Flush 3 Ml Syringe) 3 ml IVFLUSH QSHIFT [facility] Last Admin: 06/27/21 02:31 Dose: Not Given Documented by: CHRIS Non-Admin Reason: IV Running Labs CBC & Chem 7: 06/26/21 18:15 06/26/21 18:15 Labs: Laboratory Results - last 24 hr 06/26/21 06/26/21 06/26/21 18:15 18:15 18:55 MCV 84.5 MCH 27.4 MCHC 32.4 RDW 13.6 Plt Count 178 MPV 11.5 Immature Gran % (Auto) 0.5 H Neut % (Auto) 38.0 L Lymph % (Auto) 53.6 H [place] % (Auto) 5.2 Eos % (Auto) 2.1 Baso % (Auto) 0.6 Lymph # (Auto) 3.3 [place] # (Auto) 0.3 Eos # (Auto) 0.1 Baso # (Auto) 0.0 Abs Immat Gran (auto) 0.03 Absolute Neuts (auto) 2.4 Absolute Nucleated RBC 0.000 Nucleated RBC % (auto) 0.0 Smear Tech's Comments VERIFIED Anion Gap 14 Estim Creat Clear Calc 113.0 Estimated GFR > 60 Random Glucose 77 Calcium 9.1 Influenza Type A (PCR) NEGATIVE Influenza Type B (PCR) NEGATIVE RSV RNA Qual (PCR) NEGATIVE SARS-CoV-2 RNA (RT-PCR) NEGATIVE Procedures Date of Service Date of Service: 06/27/21 Progress Note: A&P Assessment and plan (1) Abdominal pain: Status: Acute Assessment and Plan: More on the right flank area Chronic Clinically not obstructed Passing flatus No nausea or vomiting Abdomen soft, nondistended, mildly tender in right flank Chronic pain likely from postop changes from right colectomy Diet as tolerated (2) Headache: Status: Acute Assessment and Plan: Will give Tylenol and ibuprofen No neurologic changes Check orthostasis Fall Risk Details Current Medications: Current Medications Acetaminophen (Acetaminophen 325 Mg Tablet) 325 mg PO Q6H PRN PRN Reason: headache Last Admin: 06/27/21 02:23 Dose: 325 mg Documented by: Lactated Ringer's (Lr) 1,000 mls @ 100 mls/hr IVCONT .Q10H [facility] Last Admin: 06/27/21 02:51 Dose: 100 mls/hr Documented by: Morphine Sulfate (Morphine Sulfate 2 Mg/Ml Cartridge) 2 mg IVPUSH Q3H PRN; Protocol PRN Reason: Pain, Severe (Pain Scale 7-10) Last Admin: 06/26/21 18:37 Dose: 2 mg Documented by: Ondansetron HCl (Ondansetron Hcl 4 Mg/2 Ml Vial) 4 mg IVPUSH Q8H PRN PRN Reason: nausea Sodium Chloride (0.9 % Sodium Chloride Flush 3 Ml Syringe) 3 ml IVFLUSH QSHIFT [facility] Last Admin: 06/27/21 02:31 Dose: Not Given Documented by: Time Spent With Patient Time: Total time spent is greater than 50% in coordination of care (as documented) at patient's floor/unit and/or counseling patient: Quality Stroke Does the patient have a stroke diagnosis?: No VTE Prior VTE?: No VTE Risk Level:: Medical - low VTE Device Contraindication: N/A - Device Ordered VTE Drug Contraindication: Treatment Not Indicated
[2021-06-27] MEDS: Butalb/Acetamin/Caff 50/325/40 TABLET 1 TAB PO ×2 (09:01→15:16)
--- NOTE | 2021-06-27 13:01 | MHC.CM.PN ---
Addendum entered by Arianne Laguna 06/27/21 15:07: PT CLEARED TO DC HOME TODAY WITH NO SERVICES Original Note: PT REPORTS SHE LIVES WITH ROOMMATES AND IS INDEPENDENT WITH CARE PT DENIES USE OF DME OR HOME SERVICES PT CONFIRMS HER PCP IS MICHELLE AVALOS SHE DOES NOT HAVE A HCP AND DOES NOT FEEL READY TO COMPLETE ONE INFORMATION AND BLANK DOCUMENT PROVIDED PT REQUESTED HER FRIEND, RAFI MCCLURE ([phone]) BE ADDED TO HER RECORDS A PRIMARY CONTACT TASK SENT TO [facility] CURRENT DC PLAN IS HOME WITH NO SERVICES PT TO ARRANGE TRANSPORTATION
[2021-06-27] MEDS: ondansetron HCL 4 MG/2 ML VIAL IVPUSH (14:50)
--- NOTE | 2021-06-27 15:08 | PM.EVENT ---
Event Note Date of Service: 06/27/21 Event Note: Main complaint is headache Controlled by Fioricet No vomiting Has chronic nausea Abdomen soft, nondistended, no guarding rebound, no significant tenderness Orthostatics taken earlier - blood pressure study, no evidence of orthostatic hypotension Labs yesterday were all within normal She is extremely anxious about her CAT scan report I explained to her that at this time, the changes seen on the right gutter appear to be postop and not secondary to a recurrent cancer; Clinically she does not have any obstruction I will see her in the office for follow-up I also advised her to make sure that she follows with her primary care physician closely because of her headaches and anxiety I will prescribe her Fioricet and Zofran She is okay to go home, comfortable with plan
--- NOTE | 2021-07-04 10:28 | PM.DS ---
DS: Providers Provider Date of Service: 06/27/21 Date of admission: 06/26/21 17:40 Primary care physician: Amalia Ashton Attending physician on admission: Jan Douglas Attending physician on discharge: Jan Douglas DS: Diagnosis Discharge Diagnosis (1) Abdominal pain: Status: Resolved DS: Summary Hospital Course Hospital Course: BRIEF HPI: Jose David Copeland is a 21 year old female who is well known to me. She had undergone HALS right colon resection last March as recommended by the Oncologist. Her path report did not show any residual carcinoid tumor and all her lymph nodes were negative. Since the surgery, she has had multiple complaints of frequent dizziness, irregular bowel habits and periods of not feeling well. She describes seeing small amounts of blood per rectum last week. She was sent to the ED by her PCP yesterday for this. She had a CT scan showing question of PSBO, with postop changes in the right gutter along her previous right colectomy site. She was initially advised admission yesterday but she refused. She says she continues to feels dizzy and is extremely worried about her CT scan report which also mentioned the possibility of a cancer . She also says she has a bad headache. She denies any recent vomitting. She says she has had poor appetite. She has had bowel movements. She has multiple complaints of back pain and sharp abdominal pain all over . HOSPITAL COURSE: She was admitted for observation. She had a very benign abdominal exam. Clinically, she did not appear obstructed.She was kept on clear liquids and given IV fluids for possible dehydration. She was very worried and anxious about her CT scan report and was reassured that the changes are expected from her right colon resections done last March. The following day, she continued to have right flank pain that was a little improved. Her abdomen remained bneing. The pain seemed more chronic in nature. She was advanced to a solid diet. She was reassessed later and was passing flatus and tolerating her diet without worsening pain or vomiting. She was given fioricet and zofran for her headaches which was her biggest complaint. She felt ready for discharge. She was discharged to home on 06/27/21 in stable condition. She is to follow up with Dr. Douglas and her PCP in a week. Status at Discharge Functional status at discharge: independent ambulation Time Spent with Patient Time attestation: Total time spent providing and/or coordinating discharge services: Discharge coordination time: Less than 30 minutes Quality: Safe Use of Opioids Does Pt have an Active Cancer Diagnosis on the Problem List?: No Quality: Stroke Does the patient have a stroke diagnosis?: No Physical Exam Vital Signs: Vital Signs: Last Vital Signs Temp 97.9 F 06/27/21 11:47 Pulse 73 06/27/21 13:30 Resp 17 06/27/21 13:27 BP 107/70 06/27/21 13:30 Pulse Ox 98 06/27/21 11:47 BMI result Body Mass Index 25.8 DS: Data Data Completed and Pending Completed studies during hospitalization [Text1]: Procedures Excision of Right Large Intestine, Percutaneous Endoscopic Approach (04/04/21) Discharge Plan Discharge Patient Disposition: Home, Self-Care Referrals: Amalia Ashton [Primary Care Provider] - 1 Week Jan Douglas MD [Emergency Provider] - 1 Week Discharge Medications: New [id number]-ngug [Fioricet] 50-300-40 mg capsule 1 cap PO Q6H PRN (Reason: headache) Qty: 30 0RF ondansetron 4 mg tablet,disintegrating 4 mg PO Q8H PRN (Reason: nausea) Qty: 20 0RF Discharge Orders: Discharge Order (Routine); Ordered 06/27/21 Ordered By: Jan Douglas Diet: advance to usual diet Activity on Discharge: As tolerated Stand Alone Forms: Patient Portal Discharge page Care Plan Goals: ffup with PCP and with control headache Health Concerns: nausea,severe headaches anxiety Plan of Treatment: ffup with PCP and Assessment: doing well Discharge Date/Time: 06/27/21 17:11
== END 2021-06-27 17:11 | disposition home or self-care (01) ==
LOC: HO.ED 17:40 → HO.EDOVER 18:05 → HO.S3 06-27 07:06
PROVIDERS: Nurse Practitioner Family; Admitting Provider Surgery; Emergency Provider Surgery; PCP Nurse Practitioner; Visit Provider Surgery
DX: R10.9 Unspecified abdominal pain (principal); K56.609 Unspecified intestinal obstruction, unspecified as to partial versus complete obstruction; C7A.020 Malignant carcinoid tumor of the appendix; R51.9 Headache, unspecified; R42 Dizziness and giddiness; E86.0 Dehydration; R45.86 Emotional lability; F41.9 Anxiety disorder, unspecified; Z20.822 Contact with and (suspected) exposure to COVID-19; Z90.49 Acquired absence of other specified parts of digestive tract; Z79.899 Other long term (current) drug therapy; Z53.29 Procedure and treatment not carried out because of patient's decision for other reasons
CPT/HCPCS: 0241U; 36415; 80048; 85025; 96374; 99218; 99284; 99285; J2270; J2405